=== PATIENT | male | born 1950 | race Caucasian/White ===

== ENCOUNTER → 2018-04-22 | Outpatient (CLI) | payer BC, MEDICARE ==
[~2018-04-22] MED LIST: CONTRAST GIVEN. MC
[2018-04-22] MEDS: LIDOCAINE WITH 8.4% SOD BICARB 3 ML DISP.SYRIN. INJ (13:48)
[2018-04-22] MEDS: IOHEXOL 300 MG/ML 10ML VIAL. IT (13:48)
== END | disposition home or self-care (01) ==
LOC: RAD 12:28
DX: M51.16 Intervertebral disc disorders with radiculopathy, lumbar region (principal); M47.812 Spondylosis without myelopathy or radiculopathy, cervical region; M48.02 Spinal stenosis, cervical region; K57.30 Diverticulosis of large intestine without perforation or abscess without bleeding; Z98.1 Arthrodesis status
CPT/HCPCS: 72126; 72132; 72270; Q9967

== ENCOUNTER 2019-03-31 09:34 | Inpatient (IN) | payer MEDICARE, BC ==
[~2019-03-31] VITALS: Ht 172.7 cm; Wt 112.5 kg
[~2019-03-31 09:34] MED LIST changes: -CONTRAST GIVEN. MC; +GABA300C18 PO; +IBUP-1027 PO; +MELO15TA23 PO; +OXYC1TAB19 PO
[2019-03-31 11:00] VITALS: BP 112/55
[2019-03-31] MEDS ORDERED: fentaNYL PF VIAL 100 MCG/2 ML VIAL ONE (12:02)
[2019-03-31] MEDS ORDERED: MIDAZOLAM HCL/PF 2 MG/2 ML VIAL. ONE (12:03)
[2019-03-31] MEDS ORDERED: HEPARIN for IV BOLUS 10,000 UNIT/10 ML VIAL. ONE (12:03)
[2019-03-31] MEDS ORDERED: VERAPAMIL 5 MG/2 ML VIAL. ONE (12:03)
[2019-03-31] MEDS ORDERED: NITROGLYCERIN 200 MCG/2 ML SYRINGE FOR CATH/VASC LAB. ONE ×2 (12:03→12:59)
[2019-03-31] MEDS ORDERED: IOHEXOL 300 MG/ML 100ML VIAL. ONE (12:22)
[2019-03-31] MEDS ORDERED: BIVALIRUDIN 250 MG VIAL. IV ONE ×2 (12:22→13:45)
[2019-03-31] MEDS ORDERED: EPINEPHrine SYRINGE 1 MG/10 ML SYRINGE ONE (12:26)
[2019-03-31] MEDS ORDERED: IODIXANOL 320 MG/ML 100 ML VIAL. ONE ×2 (12:42→13:11)
[2019-03-31] MEDS ORDERED: TIROFIBAN 5MG -0.9% NS 100 ML IV ONE (13:13)
[2019-03-31] MEDS ORDERED: ASPIRIN 325 MG TABLET ONE (13:32)
[2019-03-31] MEDS ORDERED: TICAGRELOR 90 MG TABLET. ONE (13:32)
[2019-03-31] MEDS ORDERED: LIDOCAINE 1% Multi-Dose 20 ML VIAL. INJ ONE (13:45)
[2019-03-31] MEDS ORDERED: HEPARIN for IV BOLUS 10,000 UNIT/10 ML VIAL. IART ONE (13:45)
[2019-03-31] MEDS ORDERED: fentaNYL PF VIAL 100 MCG/2 ML VIAL IV ONE (13:45)
[2019-03-31] MEDS ORDERED: TIROFIBAN 5MG -0.9% NS 100 ML IV PRN (13:45)
[2019-03-31] MEDS ORDERED: IOHEXOL 300 MG/ML 100ML VIAL. IART ONE (13:45)
[2019-03-31] MEDS ORDERED: MIDAZOLAM HCL/PF 2 MG/2 ML VIAL. IV ONE (13:45)
[2019-03-31] MEDS ORDERED: VERAPAMIL 5 MG/2 ML VIAL. IART ONE (13:45)
[2019-03-31] MEDS ORDERED: NITROGLYCERIN 200 MCG/2 ML SYRINGE FOR CATH/VASC LAB. IART ONE (13:45)
[2019-03-31] MEDS ORDERED: TICAGRELOR 90 MG TABLET. PO ONE (13:45)
[2019-03-31] MEDS ORDERED: ASPIRIN 325 MG TABLET PO ONE (13:45)
[2019-03-31 13:50] VITALS: BP 109/75
[2019-03-31 15:00] VITALS: BP 125/71
--- NOTE | 2019-03-31 15:57 | EKG ---
[facility] [address] [place] [address] Test Date: 2019-03-31 Test Time: 15:38:19 Pat Name: GURWINDER LUNSFORD Department: Room: 244 1 Gender: M Director Process Improvement: : 1950 Requested By: JAEL JACOBSEN Order Number: [id number] Reading MD: Kevin Eldridge Measurements Intervals [place] Rate: 66 P: 0 DC: 170 QRS: 28 QRSD: 112 T: 28 QT: 404 QTc: 425 Interpretive Statements SINUS RHYTHM INCOMPLETE RIGHT BUNDLE BRANCH BLOCK Electronically Signed On 04-28-2019 13:13:54 CDT by Kevin Eldridge
--- NOTE | 2019-03-31 16:24 | CARD ---
MR#: [id number] Date of Study: 03/31/2019 Ordering Physician: JAEL WEBB, Referring Physician: CIRA GUADALUPE, Tech: RT Ruth (R) DENISSE APPROVED REPORT Technologist: RT Ruth (R) DENISSE Nurse: Nikia Krishna R.N. Procedure(s) performed: MOD SEDATION: 90 min FLUORO TIME: 21.8 MIN DAP: 418 Gycm2 Contrast Total:323 ml LHC, Coronary angiography, PCI of the LAD, PCI of the LCx, PTCA of OM1 HISTORY The patient is a 68 year-old male with a history of : coronary artery disease, tobacco history() , dy slipidemia. INDICATION The indication(s) include : non-STEMI . PROCEDURE NARRATIVE INFORMED CONSENT: After explaining the risks and benefits of the procedure and alternatives, informed consent was obtained. The patient was brought electively to the cardiac catheterization lab. A timeout was performed confi rming the patient's name, date of , procedure, and site of procedure. All necessary personnel w ere wearing the appropriate protective equipment and radiation monitor devices. (See nursing notes for medications administered). ACCESS: The right wrist was sterilely prepped and draped in the usual fashion. The right wrist was infiltrat ed with 1 mL of 2% lidocaine for subcutaneous anesthesia. A 6 Polish Terumo glide sheath was inserte d into the right radial artery without difficulty. CORONARY ANGIOGRAPHY: Right and left coronary angiography was performed using a 6Fr TIG 4.0 catheter. Left ventricular en d diastolic pressure was obtained with a TIG catheter and pullback was performed after left ventricul ography. All catheter exchanges and advancements were performed over a guidewire. FINDINGS: HEMODYNAMICS: LVEDP 22 mm Hg No gradient on LV to aortic pullback. AO: 100/60 LEFT VENTRICULOGRAM: EF 55% Anterobasal: Normal. Anterolateral: Normal Apical: Normal Diaphragmatic: Normal Posterobasal: Normal CORONARY ANGIOGRAPHY: LM is a large caliber vessel with normal angiographic appearance. LAD is a large caliber vessel with a proximal 20% stenosis and a mid 80% stenosis. D1 and D2 are moderate caliber vessels with normal angiographic appearance. LCx is a moderate caliber non-dominant vessel with a proximal 100% acute occlusion. OM1 is a moderate caliber vessel with normal angiographic appearance. OM2 is a moderate caliber vessel with severe negative remodeling and less than 1.5 mm distal vessel w ith a 100% occlusion of previously placed stent. LPL1 is a moderate caliber vessel with a prior stent with a 100% stenosis. RCA is a large caliber dominant vessel with a mid 50% stenosis. RPDA and RPL are moderate caliber vessels with normal angiographic appearance. INTERVENTIONAL TECHNIQUE: PCI OF THE LCX, PTCA OF OM2 Based upon the presenting symptoms of intractable chest pain, elevated biomarkers and 100% LCx occlus ion, an intervention was performed. Bivalirudin was used for anticoagulation. Through a 6Fr EBU 3.5 g uide catheter, a 0.014'' Mytonomywater wire was advanced into the mid LCx and LPL1. Due to significant tor tuosity, prior stents, wiring the OM2 was extremely difficult and ultimately accomplished with a [employer] ce PT wire. Balloon angioplasty was performed of the mid LCx, distal LCx and proximal LP1 with a Trek 2.0, 2.5 mm balloons. Balloon angioplasty was also performed of the OM2 with a 2.5 mm Trek balloon. Despite repeated angioplasty, due to heavy thrombus burden, there was not satisfactory improvement in stenosis with residual 70% stenosis at the ostium of OM2. Due to the fact that the vessel distally w as quite small and due to prior stents at the location of the LCx and OM2 bifurcation, it was felt th at repeat bifurcation stenting would not be useful. Therefore, PCI was only performed of the mid and distal LCx. The distal LCx was stented with a Xience Jo Ann 2.5 x 15 mm BETINA. The proximal LCx was vasiliy nted with a Jo Ann 3.0/23 mm BETINA. The OM2 was rewired after main vessel stent deployment and stent st ruts were dilated again in a serial fashion but the ostium still had residual 70-80% stenosis. INTERVENTIONAL TECHNIQUE: PCI OF THE LAD Bivalirudin was continued for an to regulation. A pro-water wire was directed to the distal LAD. Ball oon angioplasty was performed with a 2.5 x 15 mm balloon and the lesion was stented with a 3.5 x 18 m m Xience drug-eluting stent. Final post-PCI angiography demonstrated no evidence of guider wire-relat ed complications. There was AYESHA-3 flow in the left circumflex and LPL as well as the LAD. AYESHA 1-2 f low in the second obtuse marginal. The patient received 180 mg of ticagrelor at case completion. CLOSURE: At case completion the right radial sheath was removed and a Terumo radial band was applied with 13 m l of air. COMPLICATIONS: The patient tolerated the procedure well and there were no immediate complications. COMMENTS circ ayesha pre 0 post 2 om ayesha pre 0 post 1 lad ayesha pre 3 post 3 Conclusion 1. Elevated left sided filling pressures consistent with acute on chronic diastoilc heart failure. 2. Three vessel coronary disease with culprit lesion involving the LCx bifurcation. 3. Successful PCI of the proximal LCx with a 3.0/23 mm Xience BETINA, 2.5/15 Xience BETINA in the distal LC x. 4. Successful PCI of the mid LAD with implantation of a 3.5/18 mm BETINA Recommendations ASA 81mg daily Ticagrelor 90mg bid High dose statin therapy Cardiac rehab referral Smoking cessation. Signed by : Jael Webb, Electronically Approved : 03/31/2019 16:24:20
--- NOTE | 2019-03-31 17:35 | PDOC2 ---
CARDIAC CONSULT DATE OF CONSULT Date of Consult DATE: 03/31/19 TIME: 17:33 CURRENT MEDICATIONS CURRENT MEDICATIONS Current Medications Medications (Trade) Dose Ordered Sig/Amanda Route PRN Reason Start Time Stop Time Status Last Admin Dose Admin Nitroglycerin (Nitroglycerin) 600 mcg 1X ONCE IART 03/31/19 13:45 03/31/19 13:46 DC 03/31/19 13:44 Verapamil HCl (Verapamil) 2.5 mg 1X ONCE IART 03/31/19 13:45 03/31/19 13:46 DC 03/31/19 13:45 Heparin Sodium (Porcine) (Heparin Sodium) 2,500 unit 1X ONCE IART 03/31/19 13:45 03/31/19 13:46 DC 03/31/19 13:45 Heparin Sodium/ Sodium Chloride (HEPARIN for ARTERIAL LINE FLUSH) 1,000 unit 1X ONCE IART 03/31/19 13:45 03/31/19 13:46 DC 03/31/19 13:44 Midazolam HCl (Versed) 2 mg 1X ONCE IV 03/31/19 13:45 03/31/19 13:46 DC 03/31/19 13:45 Fentanyl Citrate (Fentanyl 2ml Vial) 100 mcg 1X ONCE IV 03/31/19 13:45 03/31/19 13:46 DC 03/31/19 13:45 Iohexol (Omnipaque 300 Mg/ml) 323 ml 1X ONCE IART 03/31/19 13:45 03/31/19 13:46 DC 03/31/19 13:45 Bivalirudin (Angiomax) 250 mg 1X ONCE IV 03/31/19 13:45 03/31/19 13:46 DC 03/31/19 13:45 Ticagrelor (Brilinta) 180 mg 1X ONCE PO 03/31/19 13:45 03/31/19 13:46 DC 03/31/19 13:45 Aspirin (Jorge Luis Aspirin) 325 mg 1X ONCE PO 03/31/19 13:45 03/31/19 13:46 DC 03/31/19 13:45 Lidocaine HCl (Lidocaine 1% 20ml Vial) 20 ml 1X ONCE INJ 03/31/19 13:45 03/31/19 13:46 DC 03/31/19 13:45 Tirofiban/Sodium Chloride 100 ml @ 0 mls/hr CONT PRN IV PER PROTOCOL 03/31/19 13:45 5/9/19 13:48 DC 03/31/19 13:47 ALLERGIES ALLERGIES: Coded Allergies: adhesive (Verified Allergy, Intermediate, Rash, 05/23/15) VITALS VITALS Vital Signs Date Time Temp Pulse Resp B/P (MAP) Pulse Ox O2 Delivery O2 Flow Rate FiO2 03/31/19 15:00 98.0 63 18 125/71 (89) 91 Nasal Cannula 2.0 98.0 ASSESSMENT/PLAN ASSESSMENT/PLAN CONSULT Date of Admission DATE: 03/31/19 TIME: 08:59 Reason for Consult: chest pain Problem List Problems Medical Problems: (1) Chest pain Status: Acute History of Present Illness Patient is a 8 year old male who presented with chest pain starting at [place]. He took NTG at home without improvement, however his NTG was apparently . He was given NTG again in the ED as well as morphine at which point his blood pressure apparently decreased as well as Spo2. He reports no improvement until in ICU when he fell asleep. He is currently reporting pain at about 5/10 which he reports is better than previously. He reports radiation to his jaw. Initially he had associated diaphoresis and dyspnea which he currently denies. He reports pain consistent with his prior angina. He is wheelchair bound due to neuropathy so is unable to relate any change in functional capacity. He denies any baseline dyspnea, congestive symptoms, palpitations or lightheadedness. He does report chronic edema. Past Medical History Medical/surgical history- PAD PROCEDURE: 2012 Right leg runoff from the contralateral approach. Rotational atherectomy of a calcified left common iliac plaque with a lesion of approximately 75 percent. Placement of eV3 8 x 37 stent in the left common iliac artery from ipsilateral approach, which was post dilated with an 8 x 20 balloon. Left leg runoff revealed a highly calcified left common iliac lesion of about 75 percent. The lesion also appears to be eccentric. Successful rotational atherectomy of the left iliac lesion using a 2.0 CSI bur. Successful placement of an 8 x 37 mm stent in the left common iliac artery. Post dilatation of the stent using an 8 x 20 balloon. The stent used was an eV3. Final angiographic results of residual stenosis of less than zero percent with a good 3 vessel runoff to the foot. CAD July 09, 2007: Left heart cardiac catheterization with angioplasty and stenting of the subtotally occluded obtuse marginal branch and distal circumflex artery. This was done at [facility]. Cardiac catheterization revealed a patent left main. Circumflex artery proximally was patent, then it had a tubular narrowing distally about 80 percent. The obtuse marginal branch first one was patent. The second one had a 99 percent diffuse disease proximally. The left anterior descending artery had a 20 percent proximal lesion and 20 percent mid lesion. The right coronary artery was a tanvi nant vessel with 20 percent lesion. A 2.5 x 28 mm drug-eluting Cypher stent was placed in the proximal obtuse marginal branch and a 3 x 18 drug-eluting stent was placed in the distal left circumflex artery. This was also a Cypher stent. Cardiac cath 01/05/13 Left main. Left main coronary artery is noted to be patent. Distally it divides into the left circumflex artery and a left anterior descending artery. The left circumflex artery gives off a very high obtuse marginal branch. Then, it is noted to have 2 stents in it. One is in the distal circumflex artery, it is widely patent with a step-off and a step-down noted. The distal circumflex artery is noted to be patent beyond the stent. A large obtuse marginal branch has a previously placed stent which is also noted to be widely patent with a step-up and a step-down. No significant disease is noted in the distal part of the obtuse marginal branch. Left anterior descending artery. The left anterior descending artery shows heavy calcification proximally. In the mid area, there is a tubular narrowing of about 30 percent to 40 percent. Then right after the origin of the diagonal branch there is a focal area in the mid part of the left anterior descending artery which appears to be about 60 percent. A fractional flow reserve across this area was noted to be negative. Right coronary artery. The right coronary artery is the dominant vessel. The right coronary artery arises normally from the right coronary sinus and the right coronary artery proximally it is patent. In its mid area, there is an abrupt change in the lumen diameter with distal area showing about 40 percent lesion. The posterolateral and posterior descending arterial branches are noted to be patent. Left ventriculogram. The left ventriculogram reveals normal wall motion and normal left ventricular function, ejection fraction of 60 percent. No evidence of any significant mitral regurgitation is noted. Fractional flow reserve measured across the mid left anterior descending artery changed from 0.92 to 0.82 with maximum hyperemia. echo 11/04/12 Technically difficult study with poor endocardial definition, cannot assess for regional wall motion abnormalities. Left ventricular systolic function is within normal limits. LVEF 60% No significant valvular abnormalities. CHB s/p PPM carotid stenosis, hypotension, pneumonia, GERD, BPH, urinary retention, UTIs, neurogenic bladder (self cath). Cervical spine stenosis, s/p surgery, wheelchair bound due to neuropathy, arthritis, chronic pain, spinal stimulator implanted, anxiety, depression Family History non contributory Social History current smoker Current Medications Current Medications Aspirin (Children'S Aspirin) 324 mg 1X ONCE PO Last administered on 03/31/19at 00:46; Start 03/31/19 at 00:45; Stop 03/31/19 at 00:55; Status DC Nitroglycerin (Nitrostat) 0.4 mg PRN Q5MIN PRN SL CP RATING > 1/10 Last administered on 03/31/19at 05:27; Start 03/31/19 at 00:45; Stop 04/01/19 at 00:44 Morphine Sulfate (Morphine 4mg Syringe) 4 mg PRN Q15MIN PRN IV/SQ PAIN GREATER THAN 3/10 Last administered on 03/31/19at 00:54; Start 03/31/19 at 00:45; Stop 04/01/19 at 00:44 Ondansetron HCl (Zofran) 4 mg 1X ONCE IV Last administered on 03/31/19at 00:47; Start 03/31/19 at 00:45; Stop 03/31/19 at 00:55; Status DC Ondansetron HCl (Zofran) 4 mg STK-MED ONCE .ROUTE ; Start 03/31/19 at 00:44; Stop 03/31/19 at 00:45; Status DC Aspirin (Children'S Aspirin) 81 mg STK-MED ONCE .ROUTE ; Start 03/31/19 at 00:45; Stop 03/31/19 at 00:46; Status DC Nitroglycerin (Nitro-Bid Oint) 1 inch STK-MED ONCE .ROUTE ; Start 03/31/19 at 01:33; Stop 03/31/19 at 01:34; Status DC Nitroglycerin (Nitro-Bid Oint) 1 inch 1X ONCE TP Last administered on 03/31/19at 01:59; Start 03/31/19 at 02:00; Stop 03/31/19 at 02:01; Status DC Ketorolac Tromethamine (Toradol 15mg Vial) 15 mg 1X ONCE IV Last administered on 03/31/19at 01:59; Start 03/31/19 at 02:00; Stop 03/31/19 at 02:01; Status DC Ondansetron HCl (Zofran) 4 mg PRN Q4HRS PRN IV NAUSEA/VOMITING; Start 03/31/19 at 02:00; Stop 04/01/19 at 01:59 Fentanyl Citrate (Fentanyl 2ml Vial) 50 mcg PRN Q1HR PRN IV PAIN Last administered on 03/31/19at 04:42; Start 03/31/19 at 02:00; Stop 04/01/19 at 01:59 Sodium Chloride 1,000 ml @ 125 mls/hr Q8H IV Last administered on 03/31/19at 03:30; Start 03/31/19 at 01:58; Stop 04/01/19 at 01:57 Acetaminophen (Tylenol) 650 mg PRN Q4HRS PRN PO FEVER; Start 03/31/19 at 02:00; Stop 04/01/19 at 01:59 Nitroglycerin (Nitrostat) 0.4 mg PRN Q5MIN PRN SL CHEST PAIN; Start 03/31/19 at 02:00; Stop 04/01/19 at 01:59 Allergies: Coded Allergies: No Known Drug Allergies (Unverified , 02/02/15) Review of System as per HPI General: Alert, Oriented X3, Cooperative, No acute distress HEENT: Atraumatic, EOMI, Mucous membr. moist/pink Lungs: Other (coarse with decreased bases) Heart: Normal S1, Normal S2, Other (heart sounds distant, no obvious murmurs, no gallops, clicks or rubs. ) Abdomen: Normal bowel sounds, Soft Extremities: No cyanosis, Other (+2 edema) Neuro: Normal speech, Strength at 03/27 X4 ext Psych/Mental Status: Mood NL VITALS Vital Signs Date Time Temp Pulse Resp B/P (MAP) Pulse Ox O2 Delivery O2 Flow Rate FiO2 03/31/19 07:42 Nasal Cannula 2.0 03/31/19 05:52 76 19 100/60 (73) 96 03/31/19 03:18 97.3 Labs Laboratory Tests Test 03/31/19 00:40 03/31/19 05:45 White Blood Count 11.8 x10^3/uL (4.0-11.0) Red Blood Count 4.14 x10^6/uL (4.30-5.70) Hemoglobin 14.1 g/dL (13.0-17.5) Hematocrit 41.0 % (39.0-53.0) Mean Corpuscular Volume 99 fL (79-100) Mean Corpuscular Hemoglobin 34 pg (25-35) Mean Corpuscular Hemoglobin Concent 34 g/dL (31-37) Red Cell Distribution Width 16.1 % (11.5-14.5) Platelet Count 318 x10^3/uL (140-400) Neutrophils (%) (Auto) 70 % (31-73) Lymphocytes (%) (Auto) 21 % (24-48) Monocytes (%) (Auto) 8 % (0-9) Eosinophils (%) (Auto) 1 % (0-3) Basophils (%) (Auto) 1 % (0-3) Neutrophils # (Auto) 8.3 x10^3uL (1.8-7.7) Lymphocytes # (Auto) 2.5 x10^3/uL (1.0-4.8) Monocytes # (Auto) 0.9 x10^3/uL (0.0-1.1) Eosinophils # (Auto) 0.1 x10^3/uL (0.0-0.7) Basophils # (Auto) 0.1 x10^3/uL (0.0-0.2) Prothrombin Time 10.6 SEC (9.4-11.4) Prothromb Time International Ratio 1.1 (0.9-1.1) Sodium Level 141 mmol/L (136-145) Potassium Level 3.6 mmol/L (3.5-5.1) Chloride Level 103 mmol/L (98-107) Carbon Dioxide Level 24 mmol/L (21-32) Anion Gap 14 (6-14) Blood Urea Nitrogen 16 mg/dL (8-26) Creatinine 1.1 mg/dL (0.7-1.3) Estimated GFR (Cockcroft-Gault) 67.0 BUN/Creatinine Ratio 15 (6-20) Glucose Level 120 mg/dL (70-99) Calcium Level 8.5 mg/dL (8.5-10.1) Magnesium Level 1.9 mg/dL (1.8-2.4) Total Bilirubin 0.3 mg/dL (0.2-1.0) Aspartate Amino Transf (AST/SGOT) 8 U/L (15-37) Alanine Aminotransferase (ALT/SGPT) 10 U/L (16-63) Alkaline Phosphatase 88 U/L (46-116) Troponin I Quantitative < 0.017 ng/mL (0-0.055) 0.443 ng/mL (0-0.055) JB-Voc-Y-Type Natriuretic Peptide 437 pg/mL (0-124) Total Protein 6.2 g/dL (6.4-8.2) Albumin 3.1 g/dL (3.4-5.0) Albumin/Globulin Ratio 1.0 (1.0-1.7) Lipase 137 U/L (73-393) Images CXR - IMPRESSION: 1. Chronic elevation of the right hemidiaphragm with mild right basilar atelectasis. 2. Mild cardiomegaly. EKG - sinus with PACs, RBBB, non specific st/t abn Assessment/Plan 1. NSTEMI with continued anginal symptoms - lovenox, IVF, transfer for cardiac cath. Currently borderline hypotension. Add NTG and beta luz elena when pressure improves. 2. CAD with prior stenting as described above 3. PAD as described above 4. Hypotension - IVF, monitor 5. Hyperlipidemia - check lipids, add statin 6. CHB s/p PPM - check device. 7. spinal stenosis with failed surgery, spinal stim and chronic neuropathy. wheel chair bound due to pain. 8. tobaccoism - cessation encouraged. Transfer to [facility] for cardiac cath. will plan for echo there and pacemaker interrogation. NEENA SIDDIQUI APRN March 31, 2019 09:42 Signed By: NEENA SIDDIQUI APRN <<Signature on File>> Signed Date/Time: 03/31/19 0953 cc: JAEL JACOBSEN MD; CIRA GUADALUPE MD; NEENA SIDDIQUI APRN; SAGE PEÑA MD~ Patient seen and examined at [facility]. 68 y.o severe chest pain and prior CAD. 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 See cath report for full details. Severe three vessel CAD. s/p PCI to the LCx and LAD. Continue aggressive medical therapy. JAEL JACOBSEN MD March 31, 2019 17:35
[2019-03-31] MEDS: MORPHINE SULFATE 4 MG/ML VIAL. IV PRN ×2 (19:21→23:24)
[2019-03-31] MEDS: oxyCODONE/APAP 7.5/325 1 TAB TABLET PO PRN (19:22)
[2019-03-31 19:34] VITALS: BP 129/60
[2019-03-31] MEDS ORDERED: ATORVASTATIN CALCIUM 40 MG TABLET. PO SCH (21:00)
[2019-03-31] MEDS: GABAPENTIN 300 MG CAPSULE. PO SCH (21:11)
[2019-03-31] MEDS: TICAGRELOR 90 MG TABLET. PO SCH (21:11)
[2019-03-31 23:34] VITALS: BP 134/62
[2019-04-01 03:12] VITALS: BP 118/59
[2019-04-01 04:59] LABS: CHOLESTEROL/HDL RATIO 5.9
[2019-04-01] MEDS: oxyCODONE/APAP 7.5/325 1 TAB TABLET PO PRN ×2 (06:13→13:39)
[2019-04-01 07:00] VITALS: BP 125/62
[2019-04-01] MEDS ORDERED: ASPIRIN ENTERIC COATED 81 MG TABLET.DR. PO SCH (08:00)
[2019-04-01] MEDS ORDERED: IBUPROFEN 400 MG TABLET. PO SCH (08:00)
[2019-04-01] MEDS: GABAPENTIN 300 MG CAPSULE. PO SCH ×4 (08:26→14:10)
[2019-04-01] MEDS: TICAGRELOR 90 MG TABLET. PO SCH (08:27)
--- NOTE | 2019-04-01 08:53 | HP ---
ADMIT DATE: 03/31/2019 HISTORY OF PRESENT ILLNESS: The patient is a 68-year-old male patient who presented to the Emergency Room of [facility] with chest pain that started at midnight, he took nitroglycerin at home without improvement. However, his nitroglycerin was apparently . He was given nitroglycerin again in the Emergency Room with IV morphine. At this point, his blood pressure apparently decreased as well as his oxygen saturation, he reports no improvement until in ICU when he fell asleep. By the time he was seen in the ICU, his pain was rated 5/10. He reports radiation to his jaw. Initially has associated diaphoresis and dyspnea, which have subsided and he reported that his pain is consistent with his prior angina. He is wheelchair-bound due to neuropathy. He is unable to relate any change in functional capacity and he denied any shortness of breath, palpitation, lightheadedness. His first set of cardiac enzymes showed a troponin to be less than 0.017, repeat one done early in the morning was 0.443 and the third one was 2.648 and therefore, the patient was transferred to [facility] for cardiac catheterization. PAST MEDICAL HISTORY: Significant for complete heart block, status post permanent pacemaker placement. He has carotid stenosis, hypertension, pneumonia, gastroesophageal reflux disease, benign prostatic hypertrophy, urinary retention, UTIs, neurogenic bladder and he self-catheterizes, also known to have cervical spine stenosis status post surgery. He was wheelchair bound due to neuropathy, generalized arthritis, chronic pain syndrome, anxiety and depression. PAST SURGICAL HISTORY: Significant for spinal stimulator implanted, underwent left heart catheterization with angioplasty and stenting of the subtotally occluded obtuse marginal branch and distal circumflex artery done in [place]. FAMILY HISTORY: Noncontributory. SOCIAL HISTORY: He is and lives with his . He continues to smoke cigarettes. He denied any alcohol. 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 REVIEW OF SYSTEMS: As per history of present illness. PHYSICAL EXAMINATION: GENERAL: On examining him, he looked somewhat pale, no jaundice, cyanosis, or thyromegaly. No jugular venous distension. No has bilateral lower limb edema. VITAL SIGNS: His heart rate was 76, blood pressure 100/60, temperature was 97, respiratory rate was 19 and oxygen saturation was 96% on 2 liters of oxygen. HEAD, EYES, EARS, NOSE AND THROAT: Showed normocephalic, atraumatic. NECK: Supple. HEART: Showed normal first and second heart sounds with no gallop, rub or murmur. CHEST: Clear to auscultation. No crepitation or rhonchi. ABDOMEN: Distended, soft, nontender. No guarding or rigidity. No organomegaly. All hernial orifices intact. Bowel sounds normal. NEUROLOGIC: He was awake, alert, responding appropriately. All cranial nerves intact. EXTREMITIES: He moves upper extremities without difficulty; however, he has paraplegia. He is mostly wheelchair bound. LABORATORY DATA: While at [facility] Emergency Room, has had lab work which showed a white cell count of 11,800; hemoglobin 14; hematocrit 41; MCV 99; and platelet count 318,000. His chemistry showed his serum sodium to be 141, potassium 3.6, chloride 103, bicarbonate 24, anion gap of 14, BUN 16, creatinine 1.1, estimated GFR was 67 mL per minute, his glucose 120, calcium was 8.5, magnesium was 1.9. Total bilirubin, AST, ALT, alkaline phosphatase were normal. His first set of troponin was less than 0.017. However, has 2 more sets of cardiac enzymes, the second one was 0.443, third was 2.648. His beta-natriuretic peptide was 137. Total protein 6.2, albumin 3.1 and lipase 137. His prothrombin time was 10.6, INR 1.1. His nasal screen for MRSA PCR was negative. His EKG showed right bundle-branch block with nonspecific ST-T changes. ASSESSMENT AND PLAN: The patient was transferred to [facility] with non-ST segment elevation myocardial infarction, continued angina symptoms, he was started on Lovenox, IV fluid and was transferred for cardiac catheterization. Coronary artery disease with prior stenting, peripheral arterial disease, hypertension, hyperlipidemia, complete heart block status post permanent pacemaker placement, spinal stenosis with failed surgery, spinal stimulator and chronic neuropathy, wheelchair-bound due to pain and continued tobaccoism, for which cessation was encouraged. CIRA GUADALUPE MD DR: CLAUDIA/ceci JOB#: [id number] / [id number]
--- NOTE | 2019-04-01 10:33 | CARD ---
MR#: [id number] Date of Study: 04/01/2019 Ordering Physician: GENEVIEVE GUERRA, Referring Physician: CIRA GUADALUPE, Tech: Carley Velasquezgertrudis APPROVED REPORT EXAM: Two-dimensional and M-mode echocardiogram with Doppler and color Doppler. Other Information Quality : FairHR: 76bpm Technically limited study due to body habitus and heavy breathing INDICATION Non STEMI Surgery/Intervention Pacemaker: RISK FACTORS Smoking 2D DIMENSIONS RVDd3.0 (2.9-3.5cm)Left Atrium(2D)3.5 (1.6-4.0cm) IVSd1.1 (0.7-1.1cm)Aortic Root(2D)3.5 (2.0-3.7cm) LVDd5.4 (3.9-5.9cm)LVOT Diameter2.0 (1.8-2.4cm) PWd1.1 (0.7-1.1cm)LVDs4.5 (2.5-4.0cm) FS (%) 17.5 %SV51.5 ml LVEF(%)36.1 (>50%) Aortic Valve AoV Peak Amos.149.1cm/sAoV VTI26.1cm AO Peak GR.8.9mmHgLVOT Peak Amos.124.2cm/s LVOT VTI 22.28cmAO Mean GR.4mmHg RAN (VMAX)1.19ct4ESB (VTI)2.68cm2 Mitral Valve MV E Egwetktq908.6cm/sMV E Peak Gr.103mmHg MV DECEL [id number] A Oesigejm64.8cm/s MV KWJ98bhK/A Ratio1.6 MVA (PHT)4.19cm2 TDI E/Lateral E'20.4E/Medial E'18.8 Pulmonary Valve PV Peak Edkhagjp883.2cm/sPV Peak Grad.5mmHg Tricuspid Valve TR P. Oouirmkg270uo/sRAP DCECWPDL6gqPr TR Peak Gr.37cnGkJXII68ycDq Pulmonary Vein S1 Ffxribfv61.4cm/sD2 Momwaikp18.8cm/s PVa [id number] LEFT VENTRICLE The left ventricle is normal size. There is borderline concentric left ventricular hypertrophy. The E jection Fraction is 50-55%. There is grossly normal LV segmental wall motion. Transmitral Doppler caroline w pattern is Grade II-pseudonormal filling dynamics. RIGHT VENTRICLE The right ventricle is normal size. There is normal right ventricular wall thickness. RV Systolic fun ction is mildly reduced. ATRIA The left atrium size is normal. The right atrium size is normal. The interatrial septum is intact wit h no evidence for an atrial septal defect or patent foramen ovale as noted on 2-D or Doppler imaging. AORTIC VALVE The aortic valve is normal in structure and function. Doppler and Color Flow revealed no significant aortic regurgitation. There is no significant aortic valvular stenosis. MITRAL VALVE The mitral valve is normal in structure and function. There is no evidence of mitral valve prolapse. There is no mitral valve stenosis. Doppler and Color-flow revealed mild mitral regurgitation. TRICUSPID VALVE The tricuspid valve is normal in structure and function. Doppler and Color Flow revealed mild to mode rate tricuspid regurgitation with an estimated PAP of 50 mmHg. There is moderate pulmonary hypertensi on. There is no tricuspid valve stenosis. PULMONIC VALVE The pulmonic valve is not well visualized. Doppler and Color Flow revealed no pulmonic valvular regur gitation. There is no pulmonic valvular stenosis. GREAT VESSELS The aortic root is normal in size. The IVC is normal in size and collapses >50% with inspiration. PERICARDIAL EFFUSION There is a trace circumferential pericardial effusion. Critical Notification Critical Value: No <Conclusion> The Ejection Fraction is 50-55%. There is grossly normal LV segmental wall motion. Doppler and Color Flow revealed mild to moderate tricuspid regurgitation with an estimated PAP of 50 mmHg. There is moderate pulmonary hypertension. Signed by : Tevin Webb, Electronically Approved : 04/01/2019 10:32:56
--- NOTE | 2019-04-01 10:45 | NUR ---
SS following for discharge planning. SS reviewed pt chart. Pt is from home with spouse and is currently requiring oxygen. PT/OT ordered. SS will await PT/OT evaluations and recommendations and will proceed accordingly.
[2019-04-01 11:00] VITALS: BP 109/54
[2019-04-01] MEDS ORDERED: NYSTATIN TOPICAL POWDER 15GM BOTTLE. TP SCH (11:30)
--- NOTE | 2019-04-01 12:09 | PDOC ---
CARDIO Progress Notes Date and Time Date of Service 04/01/2019 Time of Evaluation 1140 Subjective Subjective: No Chest Pain, No shortness of breath, No Palpitations Vitals Vitals Vital Signs Date Time Temp Pulse Resp B/P (MAP) Pulse Ox O2 Delivery O2 Flow Rate FiO2 04/01/19 11:00 98.1 70 20 109/54 (72) 97 Nasal Cannula 2.0 98.1 Weight Weight [ ] Input and Output Intake and Output Intake and Output 04/01/19 07:00 Intake Total 300 ml Output Total 20 ml Balance 280 ml Intake Oral 300 ml Output Urine Total 20 ml # Voids 3 Laboratory Labs Laboratory Tests Test 04/01/19 04:30 Triglycerides Level 174 mg/dL (0-150) Cholesterol Level 113 mg/dL (0-200) LDL Cholesterol, Calculated 59 mg/dL (0-100) VLDL Cholesterol, Calculated 35 mg/dL (0-40) Non-HDL Cholesterol Calculated 94 mg/dL (0-129) HDL Cholesterol 19 mg/dL (40-60) Cholesterol/HDL Ratio 5.9 Physical Exam HEENT: Neck Supple W Full Motion Chest: Symmetric LUNGS: Clear to Auscultation Heart: S1S2, RRR (SR) Abdomen: Soft N/T Extremities: No Calf Tenderness, Other (trace LE edema) Neurology: alert, oriented, follow commands Other Exams right wrist arteriotomy site intact, no erythema or swelling, neurovascular status to right hand intact. Assessment Assessment 1. NSTEMI: EF and WM nml. S/P PCI, 3VD- BETINA to proximal LCx and mid LAD 2. CAD: prior stent 3. DLP 4. Hypotension: better 5. Hx of CHB with dual chamber PPM: [employer] 6. Hx of spinal stenosis with failed surgery hence with thoracic spinal stimulator 7. Tobaccoism with likely COPD 8. Moderate pulmonary HTN with mild to mod TR 9. Acute on chronic diastolic heart failure: compensated Recommendations 1. Unable to provide any NTG, BB nor ACEi/ARB at this time due to BP at low end. HBPM will reeval as an outpt 2. ASA/Brilinta. Statin 3. Will interrogate device prior to DC. 4. Smoking cessation and cardiac rehab. Limited mobility due to significant back problems. Consider Home health. 5. Typically see Dr. Moser in but will start seeing Dr. Webb, follow up at [facility] office in 4 weeks. GENEVIEVE GUERRA APRN April 01, 2019 12:09
--- NOTE | 2019-04-01 14:01 | NUR ---
Wound care Wound care consult for reddened groin. Pt has red yeasty rash in left groin with area of intertrigo. Cleansed area, applied nystatin powder. No other wounds noted on full skin inspection. Pt educated on POC. WC will continue to follow for possible changes.
[2019-04-01] MEDS ORDERED: TICA90TA PO (14:29)
--- NOTE | 2019-04-01 14:31 | SNU/HH DC ---
DISCHARGE WITH HOME HEALTH DISCHARGE INFORMATION: Discharge Date: April 01, 2019 Final Diagnosis: NSTEMI Condition on Discharge: Stable CODE STATUS: Code Status: Full HOME HEALTH: Face to Face: I certify this patient is under my care and that I, or a nurse practitioner or physician's custody assistant working with me, had a face to face encounter that meets the physician face to face encounter requirements with this patient on 04/01/19 Medical Complications: MA RN For Eval/Treatment: Yes Physical Therapy For: Evalulation/Treatment Occupational Therapy For: Evaluation/Treatment Pt Meets Homebound Status: Limited distance walking POST DISCHARGE ORDERS: Activity Instructions for Disc: Resume previous activity Weight Bearing Status after Di: As tolerated DIET AFTER DISCHARGE: Regular CERTIFICATION STATEMENT: Certification Statement: Certification Statement: Based on the above finding, I certify that this patient is confined to the home and needs intermittent fpc care, physical therapy and/or speech therapy, or continues to need occupational therapy.~ This patient is under my care, and I have initiated the establishment of the plan of care.~ This patient will be followed by myself or a community physician who will periodically review the plan of care. Home Meds Active Scripts Ticagrelor (BRILINTA) 90 Mg Tablet, 90 MG PO BID for CAD for 30 Days, #60 TAB Prov:CIRA GUADALUPE MD 04/01/19 Reported Medications Oxycodone/Apap 7.5-325 (PERCOCET 7.5-325 MG TABLET ) 1 Each Tablet, 1 TAB PO PRN PRN for PAIN, TAB 05/23/15 Meloxicam (MELOXICAM) 15 Mg Tablet, 1 TAB PO DAILY, #30 TAB 2 Refills 05/23/15 Gabapentin (GABAPENTIN ) 300 Mg Capsule, 1 CAP PO TID, #90 CAP 5 Refills 05/23/15 Ibuprofen (IBUPROFEN) 400 Mg Tablet, 2 TAB PO PRN Q6HRS, #20 TAB 05/23/15 CIRA GUADALUPE MD April 01, 2019 14:31
[2019-04-01 14:41] VITALS: BP 101/41
--- NOTE | 2019-04-01 14:53 | NUR ---
SS following up with discharge planning. Discharge orders received for home healthcare. SS met with pt and spouse in room and discussed options. Pt and pt's spouse agreeable to [facility]. SS phoned and faxed referral to [facility], ; fax [phone]. [facility] called and accepted pt.
[2019-04-01] MEDS ORDERED: ATOR40TA59 PO (15:15)
[2019-04-01] MEDS ORDERED: ASPI-612 PO (15:16)
--- NOTE | 2019-04-01 16:33 | NUR ---
Discharge Note: [facility] Discharge instructions and discharge home medications reviewed with Patient and a copy given. All questions have been answered and understanding verbalized. The following instructions and handouts were given: cardiac cath,cardiac diet, and smoking cessation Discontinued iv lines and catheter intact. Patient discharged to home with home health with spouse via private vachile.
== END 2019-04-01 16:36 | disposition home health service (06) | DRG 246 ==
LOC: 2 SOUTH 10:37
PROVIDERS: ADMIT Internal Medicine; ATTEND Internal Medicine
PROC: B2111ZZ Fluoroscopy of Multiple Coronary Arteries using Low Osmolar Contrast (ICD-10-PCS; principal; 2019-03-31)
PROC: 027136Z Dilation of Coronary Artery, Two Arteries with Three Drug-eluting Intraluminal Devices, Percutaneous Approach (ICD-10-PCS; 2019-03-31)
PROC: B2151ZZ Fluoroscopy of Left Heart using Low Osmolar Contrast (ICD-10-PCS; 2019-03-31)
PROC: 4A023N7 Measurement of Cardiac Sampling and Pressure, Left Heart, Percutaneous Approach (ICD-10-PCS; 2019-03-31)
DX: T82.855A Stenosis of coronary artery stent, initial encounter (principal); I21.4 Non-ST elevation (NSTEMI) myocardial infarction; I50.33 Acute on chronic diastolic (congestive) heart failure; J98.11 Atelectasis; E78.5 Hyperlipidemia, unspecified; F17.210 Nicotine dependence, cigarettes, uncomplicated; G62.9 Polyneuropathy, unspecified; G89.4 Chronic pain syndrome; I11.0 Hypertensive heart disease with heart failure; I25.119 Atherosclerotic heart disease of native coronary artery with unspecified angina pectoris; I27.20 Pulmonary hypertension, unspecified; I73.9 Peripheral vascular disease, unspecified; J44.9 Chronic obstructive pulmonary disease, unspecified; K21.9 Gastro-esophageal reflux disease without esophagitis; M48.00 Spinal stenosis, site unspecified; N31.9 Neuromuscular dysfunction of bladder, unspecified; N40.1 Benign prostatic hyperplasia with lower urinary tract symptoms; F32.9 Major depressive disorder, single episode, unspecified; F41.9 Anxiety disorder, unspecified; I65.29 Occlusion and stenosis of unspecified carotid artery; M19.90 Unspecified osteoarthritis, unspecified site; I95.9 Hypotension, unspecified; Z95.0 Presence of cardiac pacemaker; Z95.5 Presence of coronary angioplasty implant and graft; Z99.3 Dependence on wheelchair
CPT/HCPCS: 36415; 80061; 92921; 92928; 93005; 93306; 93458; 99152; 99153; 99406; C1713; C1725; C1769; C1887; C1892; J0583; J1644; J2250; J2270; J3010; J3490; Q9967; J3246

== ENCOUNTER 2019-04-10 11:59 | Inpatient (IN) | payer BC, MEDICARE ==
[~2019-04-10] VITALS: Ht 172.7 cm; Wt 117.3 kg
[~2019-04-10 11:59] MED LIST changes: +ASPI-612 PO; +ATOR40TA59 PO; +TICA90TA PO
[2019-04-10 14:00] VITALS: BP 93/53
[2019-04-10] MEDS ORDERED: GABA800T5 PO (14:11)
[2019-04-10] MEDS ORDERED: AMIT25TA PO (14:11)
[2019-04-10] MEDS ORDERED: SERT100T PO (14:11)
[2019-04-10] MEDS ORDERED: LIDO700A39 TP (14:11)
[2019-04-10] MEDS ORDERED: TIZA4TAB PO (14:11)
[2019-04-10] MEDS ORDERED: OXYC1TAB22 PO (14:11)
[2019-04-10] MEDS ORDERED: IV NORMAL SALINE 1000ML BAG 1,000 ML IV ONE (14:45)
[2019-04-10] MEDS ORDERED: oxyCODONE IR 5 MG TABLET PO PRN (14:45)
[2019-04-10 15:00] VITALS: BP 93/53
--- NOTE | 2019-04-10 15:09 | PDOC ---
Infectious Disease Note Vital Sign Vital Signs Vital Signs Date Time Temp Pulse Resp B/P (MAP) Pulse Ox O2 Delivery O2 Flow Rate FiO2 04/10/19 14:00 98.4 79 18 93/53 (66) 95 Room Air 98.4 Objective Assessment Sepsis with hypotension UTI POA ([facility]) 04/10 Leukocytosis Neurogenic bladder requiring self-catheterization, currently has a indwelling Nichole in place Partial paraplegia Elevated troponin CAD/NSTEMI s/p coronary stent placement, 03/31/19 Chronic diastolic HF h/o E. coli (R amp, Unasyn) & E. faecalis (amp/vanc S) UTIs Plan Plan of Care vanc and Zosyn (initiated at [facility]) Monitor VS/renal function closely f/u Blood and urine cultures from [facility] 04/10. Labs in am Supportive care [facility] records reviewed Thank you [id number] D/W at bedside D/W RN Patient seen, examined, I agree with above. Assessment and plan was formulated with [employer]. LUCY VERGARA APRN April 10, 2019 15:09 BITA RAZO MD April 10, 2019 16:02
[2019-04-10] MEDS: oxyCODONE/APAP 10/325 1 TAB TABLET PO PRN ×2 (16:57→23:01)
[2019-04-10] MEDS ORDERED: GABAPENTIN 400 MG CAPSULE. PO ONE (17:00)
[2019-04-10 20:00] VITALS: BP 100/52
[2019-04-10 21:00] VITALS: BP 108/46
[2019-04-10] MEDS: tiZANidine 4 MG TABLET. PO SCH (21:07)
[2019-04-10] MEDS: AMITRIPTYLINE HCL 25 MG TABLET. PO SCH (21:07)
[2019-04-10] MEDS: TICAGRELOR 90 MG TABLET. PO SCH (21:07)
[2019-04-10] MEDS: ATORVASTATIN CALCIUM 40 MG TABLET. PO SCH (21:07)
[2019-04-10] MEDS: GABAPENTIN 400 MG CAPSULE. PO SCH (21:07)
[2019-04-10 22:00] VITALS: BP 97/54
[2019-04-10 23:00] VITALS: BP 103/61
[2019-04-11] VITALS (36 sets, daily range): BP systolic 67–182; BP diastolic 43–128
--- NOTE | 2019-04-11 02:37 | CONS ---
DATE OF CONSULTATION: 04/10/2019 Kehinde Mancini, nurse practitioner, dictating for Dr. Laura Omalley, Infectious Disease. REFERRING PHYSICIAN: Dr. Richard. REASON FOR CONSULTATION: Urosepsis. HISTORY OF PRESENT ILLNESS: This patient is a 68-year-old male with a history of coronary artery disease and non-ST elevation PR, status post coronary stent placement on 03/31/2019. His normally checks his blood pressure twice a day. This morning, she checked it after he suddenly became ill-appearing, pale and sweaty. His heart rate was up, and his blood pressure was low, prompting ER visit. He received IV fluids. His troponin was 0.397. He had an elevated white blood cell count of 16,000. Segs 76%, bands 2%. Lactic acid 1.7. A urinalysis showed wbc's too numerous to count, large leukocyte esterase, positive nitrite, few squamous epithelial cells and many bacteria. Urine and blood cultures are pending. He was dosed with vancomycin and Zosyn before transferring to [facility] for further evaluation and management. The patient says he had been feeling well until this morning. He denies fevers, chills or body aches. He did have some shortness of air as he walked to the car, but has since resolved. He is satting 95% on room air. He denies cough or chest discomfort. He has a history of having a spinal fusion, complicated by partial paralysis and loss of bowel and bladder control. Since 2002, he has been self-catheterizing for urinary retention 4-9 times a day using new catheters each time. He has a history of urinary tract infections with growth of E. coli (resistant to ampicillin, intermediate susceptibility to Unasyn) and Enterococcus faecalis (ampicillin and vancomycin sensitive). He denies having been on any antibiotics within the last several weeks. He complains of a chronic neuropathic-type pain in lower extremities bilaterally. He is able to walk some, but uses a wheelchair most of the time for mobility. He denies nausea, vomiting or diarrhea. Denies headache, nasal/sinus congestion or sore throat. Denies dizziness or palpitations. PAST MEDICAL HISTORY: Coronary artery disease, recent non-ST elevation PR, history of UTI with a growth of E. coli (resistant to ampicillin, intermediate Unasyn) and Enterococcus faecalis (ampicillin and vancomycin sensitive). A partial paralysis and neurogenic bowel and bladder. Chronic diastolic heart failure. Peripheral neuropathy. Hypertension, colonic polyps, GERD, benign prostatic hyperplasia, arthritis, back pain, depression, anxiety. Chronic back pain. Carotid stenosis, wheelchair bound due to neuropathy. Hyperlipidemia. PAST SURGICAL HISTORY: Coronary stent placement on 03/31/2019. Pacemaker placement, cervical spinal fusion, complicated by partial paralysis. Implantable back stimulator. Polypectomy. SOCIAL HISTORY: The patient is and lives at home. 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 He is a smoker. FAMILY HISTORY: Positive for brain abscess. ALLERGIES: No known drug allergies. MEDICATIONS: Vancomycin and Zosyn. Other medications are available and have been reviewed on the MAR. REVIEW OF SYSTEMS: Per HPI, otherwise all other review of systems are negative. PHYSICAL EXAMINATION: VITAL SIGNS: Temperature is 98.4, blood pressure 93/53, heart rate 79, respiratory rate 18 and pulse oximetry is 95% on room air. BMI 36. HEENT: Pupils equally round, reactive. Normal conjunctivae. Oral cavity: Pharynx is pink and moist. NECK: Supple. LUNGS: Clear to auscultation. HEART: S1, S2. Pacemaker. ABDOMEN: Obese, soft, nontender with bowel sounds present. GENITOURINARY: Indwelling Nichole in place. EXTREMITIES: 1+ edema in lower extremities bilaterally. No cyanosis. SKIN: Warm without generalized rash. NEUROLOGIC: Alert and oriented x 3. Chronic lower extremity weakness. LABORATORY DATA: From 04/10 at [facility], WBC 16.0, hemoglobin 13.6, platelets 381,000, segs 76%, bands 2%. Sodium 143, potassium 4.2, creatinine 1.2, BUN 39, glucose 115. Lactic acid 1.7, total bilirubin 0.5, AST 10, ALT 15. Troponin 0.397. BNP 1700. Albumin 3.2. Urine toxicology positive for opiates. Urinalysis per HPI. Urine and blood cultures pending. Chest x-ray showed no acute cardiopulmonary infiltrates. IMPRESSION: 1. Sepsis with hypotension, present on admission on 04/10. 2. Urinary tract infection present on admission ([facility]). 3. Leukocytosis. 4. Neurogenic bladder requiring self-catheterization, currently has an indwelling Nichole in place. 5. Partial paraplegia. 6. Elevated troponin. 7. Coronary artery disease, status post coronary stent placed on 03/31/2019. 8. Chronic diastolic heart failure. PLAN: Continue the vancomycin and Zosyn for now. Further antibiotic modifications pending culture results and clinical response. Repeat labs in the morning. Continue to monitor vital signs and renal function closely. Records from [facility] were reviewed. Discussed with and nursing. Thank you Dr. Richard for asking us to participate in this patient's care. Should you have further questions or concerns, please call. LAURA OMALLEY MD DR: GRETCHEN/ceci JOB#: [id number] / [id number]
[2019-04-11] MEDS: tiZANidine 4 MG TABLET. PO SCH ×3 (05:30→22:06)
[2019-04-11] MEDS: oxyCODONE/APAP 10/325 1 TAB TABLET PO PRN ×2 (05:30→13:08)
[2019-04-11 05:32] LABS: BASO % 0 % (0-3); EOS # 0.1 x10^3/uL (0.0-0.7); EOS % 2 % (0-3); HEMATOCRIT 27.1 % (39.0-53.0); HEMOGLOBIN 9.1 g/dL (13.0-17.5); LYMPH # 0.3 x10^3/uL (1.0-4.8); LYMPH % 4 % (24-48); MEAN CORPUSCULAR HEMOGLOBIN 34 pg (25-35); MEAN CORPUSCULAR HGB CONC 34 g/dL (31-37); MEAN CORPUSCULAR VOLUME 100 fL (79-100); MONO # 0.4 x10^3/uL (0.0-1.1); MONO % 5 % (0-9); NEUT # 6.8 x10^3uL (1.8-7.7); NEUT % 89 % (31-73); PLATELET COUNT 179 x10^3/uL (140-400); RED BLOOD COUNT 2.71 x10^6/uL (4.30-5.70); RED CELL DISTRIBUTION WIDTH 16.2 % (11.5-14.5); WHITE BLOOD COUNT 7.6 x10^3/uL (4.0-11.0)
[2019-04-11 05:39] LABS: CALCIUM 7.9 mg/dL (8.5-10.1); CREATININE 1.1 mg/dL (0.7-1.3); POTASSIUM 4.1 mmol/L (3.5-5.1)
[2019-04-11] MEDS ORDERED: IV NORMAL SALINE 500ML BAG 500 ML IV ONE (07:30)
--- NOTE | 2019-04-11 07:46 | PDOC ---
Infectious Disease Note Subjective Subjective pt is feeling good ROS ROS no n/v/d/sob does have chronic gluteal pain Vital Sign Vital Signs Vital Signs Date Time Temp Pulse Resp B/P (MAP) Pulse Ox O2 Delivery O2 Flow Rate FiO2 04/11/19 06:38 16 97 Room Air 04/11/19 06:00 77 98/54 (69) 04/11/19 04:00 97.8 97.8 Physical Exam PHYSICAL EXAM HEENT: Pupils equally round, reactive. Normal conjunctivae. Oral cavity: Pharynx is pink and moist. NECK: Supple. LUNGS: Clear to auscultation. HEART: S1, S2. Pacemaker. ABDOMEN: Obese, soft, nontender with bowel sounds present. GENITOURINARY: Indwelling Nichole in place. EXTREMITIES: 1+ edema in lower extremities bilaterally. No cyanosis. SKIN: Warm without generalized rash. NEUROLOGIC: Alert and oriented x 3. Chronic lower extremity weakness. Labs Lab Laboratory Tests Test 04/11/19 04:20 White Blood Count 7.6 x10^3/uL (4.0-11.0) Red Blood Count 2.71 x10^6/uL (4.30-5.70) Hemoglobin 9.1 g/dL (13.0-17.5) Hematocrit 27.1 % (39.0-53.0) Mean Corpuscular Volume 100 fL (79-100) Mean Corpuscular Hemoglobin 34 pg (25-35) Mean Corpuscular Hemoglobin Concent 34 g/dL (31-37) Red Cell Distribution Width 16.2 % (11.5-14.5) Platelet Count 179 x10^3/uL (140-400) Neutrophils (%) (Auto) 89 % (31-73) Lymphocytes (%) (Auto) 4 % (24-48) Monocytes (%) (Auto) 5 % (0-9) Eosinophils (%) (Auto) 2 % (0-3) Basophils (%) (Auto) 0 % (0-3) Neutrophils # (Auto) 6.8 x10^3uL (1.8-7.7) Lymphocytes # (Auto) 0.3 x10^3/uL (1.0-4.8) Monocytes # (Auto) 0.4 x10^3/uL (0.0-1.1) Eosinophils # (Auto) 0.1 x10^3/uL (0.0-0.7) Basophils # (Auto) 0.0 x10^3/uL (0.0-0.2) Sodium Level 143 mmol/L (136-145) Potassium Level 4.1 mmol/L (3.5-5.1) Chloride Level 109 mmol/L (98-107) Carbon Dioxide Level 23 mmol/L (21-32) Anion Gap 11 (6-14) Blood Urea Nitrogen 42 mg/dL (8-26) Creatinine 1.1 mg/dL (0.7-1.3) Estimated GFR (Cockcroft-Gault) 67.0 Glucose Level 106 mg/dL (70-99) Calcium Level 7.9 mg/dL (8.5-10.1) Micro BC neg Urine, neg so far Objective Assessment 1. Sepsis with hypotension, present on admission on 04/10. 2. Urinary tract infection present on admission ([facility]). 3. Leukocytosis. 4. Neurogenic bladder requiring self-catheterization, currently has an indwelling Nichole in place. 5. Partial paraplegia. 6. Elevated troponin. 7. Coronary artery disease, status post coronary stent placed on 03/31/2019. 8. Chronic diastolic heart failure. Plan Plan of Care sera and Gay (initiated at [facility]) Monitor VS/renal function closely f/u Blood and urine cultures from [facility] 04/10. Labs in am Supportive care [place] records reviewed d/c sera Albarran/MARLI LAZO RN, MD April 11, 2019 07:46
[2019-04-11] MEDS ORDERED: NOREPINEPHRIN 8MG/250ML PREMIX 250 ML IV PRN (08:30)
[2019-04-11] MEDS: ASPIRIN ENTERIC COATED 81 MG TABLET.DR. PO SCH (08:51)
[2019-04-11] MEDS: TICAGRELOR 90 MG TABLET. PO SCH ×2 (08:51→21:09)
[2019-04-11] MEDS: GABAPENTIN 400 MG CAPSULE. PO SCH ×3 (08:51→21:10)
[2019-04-11] MEDS: PIPERACILLIN/TAZOBACTAM 3.375 GM in IV NORMAL SALINE 50ML 50 ML IV SCH ×3 (08:53→17:34)
[2019-04-11 08:57] LABS: % BANDS 3 % (0-9); % BASOS 1 % (0-3); % LYMPHS 2 % (24-48); % MONOS 2 % (0-10); % SEGS 92 % (35-66)
[2019-04-11 08:58] LABS: ANISOCYTOSIS SLIGHT; PLT ESTIMATE ADEQUATE (ADEQUATE)
[2019-04-11] MEDS ORDERED: VANCOMYCIN 1.25 GM in IV NORMAL SALINE 250ML 250 ML IV ONE (09:00)
--- NOTE | 2019-04-11 09:40 | HP ---
ADMIT DATE: 04/10/2019 HISTORY OF PRESENT ILLNESS: The patient is a 68-year-old male patient who was seen yesterday at the Emergency Room of [facility] where he presented with low blood pressure. His noted that his blood pressure is only in his 60 systolic. He normally runs at 110s systolic and it stayed low over several blood pressure measurements and therefore the patient was brought to the Emergency Room. He did note that he has more shortness of breath than usual when walking to the car on that morning; however, he denied any chest pain. He has had non-ST segment elevation myocardial infarction and had stents placed in his heart about 10 days ago. He was evaluated extensively in the Emergency Room, was found to be hypotensive with a systolic pressure that has eventually went up to the 90 systolic after receiving about 3 liters of fluid. His white cell count was high at 16,000 and his lactic acid was only 1.7. However, his first set of cardiac enzymes showed troponin to be 0.397. His BUN was slightly elevated at 39, creatinine was 1.2. B-type natriuretic peptide was 1700. All other labs seem to be unremarkable. His PT/INR was normal and toxic screen was positive for opiates and urinalysis showed that he was positive for nitrite and also there are too numerous to count wbc's indicating that probably has urinary tract infection. He was transferred to [facility] ICU with hypotension with multiple possible etiologies including sepsis due to UTI and obviously myocardial infarction as his troponin was high, although he has only recently had stents put in his heart. The patient himself denied any chest pain. PAST MEDICAL HISTORY: Significant for gastroesophageal reflux disease; benign prostatic hypertrophy; urinary retention, for which he has an indwelling Nichole catheter; recurrent urinary tract infection; neurogenic bladder; carotid stenosis; chronic hypertension; cervical spine stenosis, status post surgery; wheelchair bound due to neuropathy; has osteoarthritis; chronic pain syndrome for which he has spinal stimulator implanted; anxiety and depression. PAST SURGICAL HISTORY: Significant for spinal stimulator implantation, has also status post PCI with stent deployment. FAMILY HISTORY: Noncontributory. SOCIAL HISTORY: He is , lives with his and apparently continues to smoke. ALLERGIES: He has no known drug allergies. MEDICATIONS: He continues to be on aspirin 81 mg once a day, meloxicam 15 mg once a day, oxycodone/APAP 10/325 one tablet every 6 hours as needed, gabapentin 600 mg 3 times a day, amitriptyline 25 mg daily, Ambien 5 mg at bedtime and Myrbetriq 50 mg daily. He is also on tizanidine and was started on Brilinta 90 mg twice a day after his most recent cardiac catheterization and stent deployment. PHYSICAL EXAMINATION: GENERAL: On arrival to the Emergency Room of [facility], he apparently looked well and was clearly in no apparent distress. VITAL SIGNS: His heart rate was 79, blood pressure was 80/61, temperature was 97.8, respiratory rate was 20, and oxygen saturation was 99%. HEAD, EYES, EARS, NOSE AND THROAT: Showed he is normocephalic, atraumatic. NECK: Supple. HEART: Showed normal first and second heart sounds. No gallop, rub or murmur. CHEST: Shows central trachea, equal bilateral chest expansion and air entry, vesicular breath sounds. No crepitation or rhonchi. ABDOMEN: Distended, soft, nontender. NEUROLOGIC: He was awake, alert, responding appropriately. All his cranial nerves are intact. There was no obvious neurological deficit, although he is mostly wheelchair bound. He has had an EKG done there, which showed that he was in sinus rhythm with 100 beats per minute, left axis deviation, corrected QT interval of [address]-segment elevation. His chest x-ray showed that the patient has mild cardiomegaly that is unchanged. He has mild elevation of the right hemidiaphragm. The costophrenic angles are clear and well demarcated, left-sided cardiac pacer is unchanged. ASSESSMENT AND PLAN: The patient has received 3 liters of oxygen and we did order blood cultures and urine culture and was started on IV ceftriaxone. In fact, we started him on vancomycin and piperacillin/tazobactam and was transferred to [facility] ICU with possibility of sepsis. His blood pressure at that time was 90 mmHg systolic. CIRA GUADALUPE MD DR: CLAUDIA/ceci JOB#: [id number] / [id number]
--- NOTE | 2019-04-11 10:16 | NUR ---
PICC Pre-insertion note: Allergies and reactions adhesive INR n/a BUN 42 Cr 1.1 Platelets 179 Blood culture done n/a blood culture results n/a Order Verified yes Consent signed yes Previous PICC placement yes Past Medical/Surgical history and current diagnosis reviewed yes Patient Medical /Surgical History Related to PICC line placement Automatic Implantable Cardioverter Defibrillator (AICD) Infectious Disease Consult Pacemaker Past central line or venous access device placement Vascular/Surgery arms Special considerations for PICC line placement Anticoagulation therapy yes PICC placement indication Multiple/ Frequent blood draws, Poor peripheral intravenous access name of PICC Nurse Mary Ellen Rivera RN
--- NOTE | 2019-04-11 11:01 | NUR ---
PICC INSERTION NOTE: Procedure: Following complete explanation of the PICC procedure including the indications, risks, and potential complications, informed consent was obtained. The possibility for infection was discussed along with signs, symptoms, and prevention. All the questions were answered. Written and verbal patient education was provided. Hand hygiene performed. Standardized central line checklist was utilized. The patient was placed in the supine position, the arm was prepped with chlorhexidine and patient draped with maximum sterile barrier. 2 mL 1% lidocaine was infiltrated into the skin to provide local anesthesia. A thorough assessment of LEFT upper extremity completed. Using real-time ultrasound guidance and standardized micro puncture set, the BRACHIAL vein was punctured and a peel away sheath was placed using the modified Seldinger technique. A tip location device was used to ensure adequate catheter placement. The catheter was secured using a securement device and an antimicrobial patch was applied directly on the insertion site followed by a transparent dressing. All ports withdraw blood and flush without resistance. Patient tolerated the procedure without apparent complication(s). TRIPLE Lumen Power PICC placement. ALLOWED FOR BLOOD DRAW HOWEVER UNSURE OF TIP LOCATION. CHEST XRAY ORDERED. TIP LOCATED IN JUGULAR VEIN. Complications: HAD TO REMOVE AND REINSERT.
[2019-04-11] MEDS: SERTRALINE 50 MG TABLET. PO SCH (11:41)
[2019-04-11] MEDS: MELOXICAM 7.5 MG TABLET PO SCH (11:41)
[2019-04-11] MEDS: LIDOCAINE (700MG/PATCH) PATCH. TD SCH (11:42)
--- NOTE | 2019-04-11 11:42 | RAD ---
Single view of the chest. 04/11/2019 11:05 AM Indication: PICC line placement Comparison: None Findings: Lordotic projection noted. There is a left upper extremity PICC line the tip directed cephalad likely into the internal jugular vein. The tip is nonvisualized. Elevation of the right hemidiaphragm is seen. Cardiomegaly noted. Mild central vascular congestion is seen. No pneumothorax is identified. Left-sided pacemaking device noted. No acute bony changes are seen. IMPRESSION: 1. Left upper extremity PICC line is malpositioned with tip directed cephalad, but distal tip not included on study, likely into the jugular venous system. Repositioning and repeat radiograph recommended. 2. Cardiomegaly and mild central vascular congestion Results called to the patient's nurse at 11:40 AM Electronically signed by: Fernando Richmond MD (04/11/2019 11:39 AM) [id number]
--- NOTE | 2019-04-11 12:30 | NUR ---
PICC Insertion Note- Procedure: Following complete explanation of the PICC procedure including the indications, risks, and potential complications, informed consent was obtained. The possibility for infection was discussed along with signs, symptoms, and prevention. All the questions were answered. Written and verbal patient education was provided. Hand hygiene performed. Standardized central line checklist was utilized. The patient was placed in the supine position, the arm was prepped with chlorhexidine and patient draped with maximum sterile barrier. 2 mL 1% lidocaine was infiltrated into the skin to provide local anesthesia. A thorough assessment of left upper extremity completed. Using real-time ultrasound guidance and standardized micro puncture set, the brachial vein was punctured and a peel away sheath was placed using the modified Seldinger technique. A tip location device was used to ensure adequate catheter placement. The catheter was secured using a securement device and an antimicrobial patch was applied directly on the insertion site followed by a transparent dressing. All ports withdraw blood and flush without resistance. Patient tolerated the procedure without apparent complication(s). Triple Lumen Power PICC placement successful and uncomplicated. Chest xray ordered to verify placement. Tip believed to be in position in svc. Awaiting results of xray to confirm. Complications: First line placed malpositioned and was unable to do line over transfer to replace. Line pulled and new access was obtained. New catheter trimmed at 47cm with 3cm visible at insertion site. Awaiting xray results to confirm placement. Addendum: 04/11/19 at 1722 by TOM NUNES RN PICC line positioned in CAJ/SVC.
--- NOTE | 2019-04-11 12:33 | PN ---
DATE: 04/11/2019 SUBJECTIVE: The patient is resting slightly propped up in bed, in no apparent distress. He is awake, alert. On questioning him, he denied any complaint. In particular, he denied any chest pain or shortness of breath. Denied any nausea, vomiting or diarrhea. Denied any hematemesis, melena, hematochezia, or hematuria. When I examined him, the nursing staff stated that he continued to be hypotensive despite receiving a total of 4000 mL of normal saline and we did start him on Levophed. PHYSICAL EXAMINATION: GENERAL: When I examined him this morning, he was definitely pale, but not jaundiced or cyanosed. No lymphadenopathy, no thyromegaly. No jugular venous distension. No limb edema. VITAL SIGNS: His heart rate was 77, blood pressure was 98/54, temperature was 97.8, respiratory rate was 25, and oxygen saturation was 94%. HEAD, EYES, EARS, NOSE AND THROAT: Showed normocephalic, atraumatic. NECK: Supple. HEART: Showed normal first and second heart sounds with no gallop, rub or murmur. CHEST: Shows central trachea, equal bilateral chest expansion and air entry, vesicular breath sounds. No crepitation or rhonchi. ABDOMEN: Distended, soft, nontender. No guarding or rigidity. No organomegaly. All hernial orifices intact. Bowel sounds normal. NEUROLOGIC: He was awake, alert, responding appropriately. All his cranial nerves are intact. He moves extremities without difficulty, although obviously he is mostly bedbound, chair bound. His intake over the last 24 hours was 4150, output was 1015. LABORATORY DATA: His lab work this morning showed a white cell count 7600, hemoglobin 9.1, hematocrit 27, MCV 100, and platelet count of 179,000 with normal manual differential. Serum sodium was 143, potassium 4.1, chloride 109, bicarbonate 23, anion gap of 111, BUN of 42, creatinine 1.1, estimated GFR was 67 mL per minute, his glucose 106, calcium was 7.9 and procalcitonin was 0.24, which obviously makes sepsis high likely, although his H and H has dramatically dropped from 13.9 and 36 down to 9.1 and 27.1. His BUN is also disproportionately high consistent with probably a GI bleed. He is currently on meloxicam, aspirin and Brilinta, which obviously makes bleeding highly likely given all these medications. In summary, this is a 68-year-old male patient who came in with hypotension with systolic pressure in the 60s. He probably has urinary tract infection and sepsis as part of it. He probably has also GI bleed. His troponin was elevated at [facility]. Unfortunately, they were not repeated here. We will order that and I will make sure to check his stool for occult blood. We will arrange for him to have a PICC line. Continue with Levophed. There is possibility obviously he has autonomic dysreflexia as he has what looks like cervical myelopathy. CIRA GUADALUPE MD DR: CLAUDIA/ceci JOB#: [id number] / [id number]
--- NOTE | 2019-04-11 12:37 | NUR ---
Patient has levophed going through a central line. We discussed picc line orders with Dr. Richard, and picc line is being inserted. We are frequently checking the peripheral iv, and it is still patent. No evidence of extravasation. Addendum: 04/11/19 at 1314 by NASH TAYLOR RN RN Correction: levophed going through peripheral line.
--- NOTE | 2019-04-11 12:47 | NUR ---
PICC Pre-insertion Note: Allergies and reactions adhesive INR n/a BUN 42 Cr 1.1 Platelets 179 Blood culture done n/a blood culture results n/a Order Verified yes Consent signed yes Previous PICC placement yes Past Medical/Surgical history and current diagnosis reviewed yes Patient Medical /Surgical History Related to PICC line placement Automatic Implantable Cardioverter Defibrillator (AICD) Infectious Disease consult Pacemaker Past central line or venous access device placement Special considerations for PICC line placement Anticoagulation therapy PICC placement indication Multiple/ Frequent blood draws, Poor peripheral intravenous access name of PICC Nurse Jailene Sun RN Addendum: 04/11/19 at 1250 by TOM SUN RN Pre-insertion at 1200 Addendum: 04/11/19 at 1250 by TOM SUN RN Amended: Links added.
--- NOTE | 2019-04-11 13:06 | RAD ---
CHEST AP ONLY Clinical indications: PICC line placement. COMPARISON: None available. Findings: Left upper extremity PICC line is in place. The line can be seen extending to at least the medial aspect of the left subclavian vein. The line cannot be seen past this point and may be hidden by pacemaker lead wires which are present. Therefore, shallow and steep LPO chest x-ray views may be helpful to evaluate the position of the PICC line. There is severe elevation of the right hemidiaphragm extending to the right hilum. There is peribronchial thickening bilaterally most prominent within the right upper lobe. No pleural effusion or pneumothorax or lung consolidation is seen. The heart size is mildly prominent which is secondary to elevation of the right hemidiaphragm and AP magnification. The mediastinum and pulmonary vasculature are unremarkable. IMPRESSION: PICC line tip is difficult to visualize. Therefore, recommend shallow and steep LPO portable AP views of the left chest for further evaluation. Severe elevation of the right hemidiaphragm. Bilateral peribronchial thickening most prominent within the right upper lobe which may represent acute or chronic bronchitis. Electronically signed by: Jorje Worley MD (04/11/2019 1:03 PM) [id number]
--- NOTE | 2019-04-11 14:46 | NUR ---
SS following for discharge planning. SS reviewed pt chart. Pt is from home and is currently on room air. No discharge needs noted at this time. SS will continue to follow for discharge planning.
[2019-04-11 15:17] LABS: HEMATOCRIT 26.7 % (39.0-53.0); HEMOGLOBIN 9.1 g/dL (13.0-17.5)
[2019-04-11] MEDS: LACTOBACILLUS RHAMNOSUS GG 1 CAPSULE. PO SCH (21:10)
[2019-04-11] MEDS: AMITRIPTYLINE HCL 25 MG TABLET. PO SCH (21:10)
[2019-04-11] MEDS: ATORVASTATIN CALCIUM 40 MG TABLET. PO SCH (21:10)
[2019-04-12] VITALS (28 sets, daily range): BP systolic 78–140; BP diastolic 45–77
[2019-04-12] MEDS: PIPERACILLIN/TAZOBACTAM 3.375 GM in IV NORMAL SALINE 50ML 50 ML IV SCH ×4 (00:08→17:21)
[2019-04-12] MEDS: oxyCODONE/APAP 10/325 1 TAB TABLET PO PRN ×3 (00:54→17:26)
[2019-04-12] MEDS: tiZANidine 4 MG TABLET. PO SCH ×3 (06:08→21:24)
[2019-04-12 06:24] LABS: HEMATOCRIT 23.8 % (39.0-53.0); HEMOGLOBIN 8.3 g/dL (13.0-17.5); RED BLOOD COUNT 2.39 x10^6/uL (4.30-5.70)
[2019-04-12 06:39] LABS: ALBUMIN 2.5 g/dL (3.4-5.0); ALBUMIN/GLOBULIN RATIO 0.8 (1.0-1.7); CALCIUM 7.8 mg/dL (8.5-10.1); GFR 74.8; POTASSIUM 4.2 mmol/L (3.5-5.1); TOTAL BILIRUBIN 0.4 mg/dL (0.2-1.0); TOTAL PROTEIN 5.6 g/dL (6.4-8.2)
--- NOTE | 2019-04-12 07:53 | PDOC ---
Infectious Disease Note Subjective Subjective pt is feeling good ROS ROS no n/v/d/sob Vital Sign Vital Signs Vital Signs Date Time Temp Pulse Resp B/P (MAP) Pulse Ox O2 Delivery O2 Flow Rate FiO2 04/12/19 06:30 87 25 98/45 (62) 92 Nasal Cannula 2.0 04/12/19 04:00 98.9 98.9 Physical Exam PHYSICAL EXAM HEENT: Pupils equally round, reactive. Normal conjunctivae. Oral cavity: Pharynx is pink and moist. NECK: Supple. LUNGS: Clear to auscultation. HEART: S1, S2. Pacemaker. ABDOMEN: Obese, soft, nontender with bowel sounds present. GENITOURINARY: Indwelling Nichole in place. EXTREMITIES: 1+ edema in lower extremities bilaterally. No cyanosis. SKIN: Warm without generalized rash. NEUROLOGIC: Alert and oriented x 3. Chronic lower extremity weakness. Labs Lab Laboratory Tests Test 04/11/19 08:27 04/11/19 15:00 04/12/19 06:00 Lactic Acid Level 1.4 mmol/L (0.4-2.0) Troponin I Quantitative 0.323 ng/mL (0.000-0.055) Hemoglobin 9.1 g/dL (13.0-17.5) 8.3 g/dL (13.0-17.5) Hematocrit 26.7 % (39.0-53.0) 23.8 % (39.0-53.0) White Blood Count 8.0 x10^3/uL (4.0-11.0) Red Blood Count 2.39 x10^6/uL (4.30-5.70) Mean Corpuscular Volume 99 fL (79-100) Mean Corpuscular Hemoglobin 35 pg (25-35) Mean Corpuscular Hemoglobin Concent 35 g/dL (31-37) Red Cell Distribution Width 16.0 % (11.5-14.5) Platelet Count 146 x10^3/uL (140-400) Sodium Level 142 mmol/L (136-145) Potassium Level 4.2 mmol/L (3.5-5.1) Chloride Level 109 mmol/L (98-107) Carbon Dioxide Level 25 mmol/L (21-32) Anion Gap 8 (6-14) Blood Urea Nitrogen 21 mg/dL (8-26) Creatinine 1.0 mg/dL (0.7-1.3) Estimated GFR (Cockcroft-Gault) 74.8 BUN/Creatinine Ratio 21 (6-20) Glucose Level 144 mg/dL (70-99) Calcium Level 7.8 mg/dL (8.5-10.1) Total Bilirubin 0.4 mg/dL (0.2-1.0) Aspartate Amino Transf (AST/SGOT) 17 U/L (15-37) Alanine Aminotransferase (ALT/SGPT) 12 U/L (16-63) Alkaline Phosphatase 80 U/L (46-116) Total Protein 5.6 g/dL (6.4-8.2) Albumin 2.5 g/dL (3.4-5.0) Albumin/Globulin Ratio 0.8 (1.0-1.7) Micro BC neg Urine, proteus Objective Assessment 1. Sepsis with hypotension, present on admission on 04/10. 2. Urinary tract infection present on admission ([facility]). 3. Leukocytosis. 4. Neurogenic bladder requiring self-catheterization, currently has an indwelling Nichole in place. 5. Partial paraplegia. 6. Elevated troponin. 7. Coronary artery disease, status post coronary stent placed on 03/31/2019. 8. Chronic diastolic heart failure. Plan Plan of Care Monitor VS/renal function closely f/u Blood and urine cultures from [facility] 04/10. Labs in am Supportive care [place] records reviewed cont [facility] supportive care soon to change to po D/W MARLI HUMPHRIES MD April 12, 2019 07:53
[2019-04-12] MEDS: SERTRALINE 50 MG TABLET. PO SCH (08:24)
[2019-04-12] MEDS: GABAPENTIN 400 MG CAPSULE. PO SCH ×3 (08:24→21:24)
[2019-04-12] MEDS: LACTOBACILLUS RHAMNOSUS GG 1 CAPSULE. PO SCH ×2 (08:24→21:24)
[2019-04-12] MEDS: MELOXICAM 7.5 MG TABLET PO SCH (08:24)
[2019-04-12] MEDS: TICAGRELOR 90 MG TABLET. PO SCH ×2 (08:24→21:24)
[2019-04-12] MEDS: ASPIRIN ENTERIC COATED 81 MG TABLET.DR. PO SCH (08:24)
[2019-04-12] MEDS: LIDOCAINE (700MG/PATCH) PATCH. TD SCH (08:25)
--- NOTE | 2019-04-12 09:48 | RAD ---
Chest, 3 views, 04/11/2019, 1:47 PM: HISTORY: Check PICC placement AP, RPO and LPO views were obtained as requested in an attempt to delineate a left PICC line. The catheter is partially obscured by overlying transvenous pacing leads, however, it does extend to the level the atrial caval junction. There has been no other significant change since earlier in the day. IMPRESSION: The left PICC extends to the level the atriocaval junction. Electronically signed by: Sandeep Silverman MD (04/11/2019 3:21 PM) [facility]
--- NOTE | 2019-04-12 11:58 | NUR ---
Cardiology consult called to April for elevated troponins, possible autonomic dysreflexia.
--- NOTE | 2019-04-12 13:25 | PDOC2 ---
CARDIAC CONSULT DATE OF CONSULT Date of Consult DATE: 04/12/19 TIME: 12:57 REASON FOR CONSULT Reason for Consult: hypotension, elevated troponin REFERRING PHYSICIAN Referring Physician: Jose Manuel SOURCE Source: Chart review, Patient HISTORY OF PRESENT ILLNESS HISTORY OF PRESENT ILLNESS This is a 68 yo male admitted initially at [facility] due to low BP. Spouse apparently took his BP and noted SBP in the 60s. He was also noted with SOA but no CP. He has had PCI with stent placement on 03/31/2019 with NSTEMI PAST MEDICAL HISTORY Cardiovascular: CAD, CHF (diastolic), HTN, MA, Hyperlipidemia, Other (carotid stenosis) CENTRAL NERVOUS SYSTEM: Periperal neuropathy GI: GERD Heme/Onc: Anemia NOS Psych: Anxiety, Depression Musculoskeletal: Osteoarthritis Infectious disease: Other (drug resistant E coli) Renal/: UTI, Benign prostatic enlarg., Other (chronic neurogenic bladder requiring catheterization) PAST SURGICAL HISTORY Past Surgical History: Pacemaker, Other (lower back surgery compliacated with infection leading to partial LE paralysis; cervical fusion; polypectomy) FAMILY HISTORY Family History noncontributory SOCIAL HISTORY Smoke: <1 pack per day ALCOHOL: none Drugs: None Lives: with Family CURRENT MEDICATIONS CURRENT MEDICATIONS Current Medications Medications (Trade) Dose Ordered Sig/Amanda Route PRN Reason Start Time Stop Time Status Last Admin Dose Admin Lactobacillus Rhamnosus (Culturelle) 1 cap BID PO 04/11/19 21:00 04/12/19 08:24 ALLERGIES ALLERGIES: Coded Allergies: adhesive (Verified Allergy, Intermediate, Rash, 05/23/15) ROS Review of System 14 point ROS evaluated with pertinent positives noted per HPI PHYSICAL EXAM General: Alert, Oriented X3, Cooperative, No acute distress HEENT: Atraumatic, Mucous membr. moist/pink Lungs: Other (diminished bases) Heart: Regular rate (SR), Normal S1, Normal S2, Other (3/6 systolic murmur to LLS border) Abdomen: Soft, No tenderness Extremities: No cyanosis, Other (trace LE edema) Neuro: Normal speech, Sensation intact Psych/Mental Status: Mental status NL, Mood NL MUSCULOSKELETAL: Osteoarthritic changes both hands, Other (partial paraplegia) VITALS VITALS Vital Signs Date Time Temp Pulse Resp B/P (MAP) Pulse Ox O2 Delivery O2 Flow Rate FiO2 04/12/19 12:00 Room Air 2.0 04/12/19 12:00 97.9 66 20 78/56 (63) 97 97.9 LABS Lab: Laboratory Tests Test 04/11/19 15:00 04/12/19 06:00 Hemoglobin 9.1 g/dL (13.0-17.5) 8.3 g/dL (13.0-17.5) Hematocrit 26.7 % (39.0-53.0) 23.8 % (39.0-53.0) White Blood Count 8.0 x10^3/uL (4.0-11.0) Red Blood Count 2.39 x10^6/uL (4.30-5.70) Mean Corpuscular Volume 99 fL (79-100) Mean Corpuscular Hemoglobin 35 pg (25-35) Mean Corpuscular Hemoglobin Concent 35 g/dL (31-37) Red Cell Distribution Width 16.0 % (11.5-14.5) Platelet Count 146 x10^3/uL (140-400) Sodium Level 142 mmol/L (136-145) Potassium Level 4.2 mmol/L (3.5-5.1) Chloride Level 109 mmol/L (98-107) Carbon Dioxide Level 25 mmol/L (21-32) Anion Gap 8 (6-14) Blood Urea Nitrogen 21 mg/dL (8-26) Creatinine 1.0 mg/dL (0.7-1.3) Estimated GFR (Cockcroft-Gault) 74.8 BUN/Creatinine Ratio 21 (6-20) Glucose Level 144 mg/dL (70-99) Calcium Level 7.8 mg/dL (8.5-10.1) Total Bilirubin 0.4 mg/dL (0.2-1.0) Aspartate Amino Transf (AST/SGOT) 17 U/L (15-37) Alanine Aminotransferase (ALT/SGPT) 12 U/L (16-63) Alkaline Phosphatase 80 U/L (46-116) Total Protein 5.6 g/dL (6.4-8.2) Albumin 2.5 g/dL (3.4-5.0) Albumin/Globulin Ratio 0.8 (1.0-1.7) ECHOCARDIOGRAM ECHOCARDIOGRAM <Conclusion> The Ejection Fraction is 50-55%. There is grossly normal LV segmental wall motion. Doppler and Color Flow revealed mild to moderate tricuspid regurgitation with an estimated PAP of 50 mmHg. There is moderate pulmonary hypertension. DATE: 04/01/19 1032 HEART CATH HEART CATH Conclusion 1. Elevated left sided filling pressures consistent with acute on chronic diastoilc heart failure. 2. Three vessel coronary disease with culprit lesion involving the LCx bifurcation. 3. Successful PCI of the proximal LCx with a 3.0/23 mm Xience BETINA, 2.5/15 Xience BETINA in the distal LCx. 4. Successful PCI of the mid LAD with implantation of a 3.5/18 mm BETINA Recommendations ASA 81mg daily Ticagrelor 90mg bid High dose statin therapy Cardiac rehab referral Smoking cessation. DATE: 03/31/19 1624 ASSESSMENT/PLAN ASSESSMENT/PLAN 1. Sepsis/shock/UTI: ID following 2. CAD: S/P PCI to LCx and LAD 03/31/2019. peaked trop at that time at 2.6 3. Elevated troponin: currently 0.3, CP free, suspect demand mediated induced by sepsis 4. Neurogenic bladder requiring self-catheterization with partial paraplegia 5. Hx of HTN: 6. Acute on chronic diastolic CHF: appears compensated currently. 7. PPM in situ: if no recent interrogation then will do one 8. Tobaccoism Recommendations 1. Hold BP meds. Continue ASA/brilinta. Recheck EKG. 2. Antibiotics per ID 3. Pressors as warranted. 4. Secondary prevention measures once BP is better. 5. Smoking Cessation GENEVIEVE GUERRA APRN April 12, 2019 13:25
--- NOTE | 2019-04-12 13:44 | PN ---
DATE: 04/12/2019 SUBJECTIVE: The patient is resting slightly propped up in bed, in no apparent distress. On questioning him, he denied any chest pain. Denied any shortness of breath, cough, phlegm or hemoptysis. His main complaint is pain in his lower extremities. He continues to require pressor support for his blood pressure. OBJECTIVE: GENERAL: On examining him, he was pale, but no jaundice or cyanosis. No lymphadenopathy, no thyromegaly. No jugular venous distention. Mild bilateral lower limb edema. VITAL SIGNS: His heart rate was 87, blood pressure was 98/45, his temperature was 98.9, respiratory rate was 25, and oxygen saturation was 92% on 2 liters of oxygen. HEAD, EYES, EARS, NOSE AND THROAT: Showed normocephalic, atraumatic. NECK: Supple. HEART: Showed normal first and second heart sounds. No gallop, rub or murmur. CHEST: Clear to auscultation. No crepitation or rhonchi. ABDOMEN: Distended, soft, nontender. NEUROLOGIC: He is awake, alert, responding appropriately. All cranial nerves intact. He moves upper extremities without difficulty, has functional paraplegia with neurogenic bladder requiring indwelling Nichole catheter. INS AND OUTS: His intake over the last 24 hours was 4150, output was 1015. LABORATORY DATA: As of this morning, his serum sodium was 142, potassium 4.2, chloride 109, bicarbonate 25, anion gap of 8, BUN 21, creatinine 1, estimated GFR was 74 mL per minute, his glucose was 144. His calcium was 7.8. Total bilirubin, AST, ALT, alkaline phosphatase were normal. Total protein was 5.6, albumin was 2.5 and his troponin 0.365 and 0.323. His white cell count was 8000, hemoglobin 8.3, hematocrit 23.8, MCV 99 and platelet count of 146,000. ASSESSMENT: 1. Sepsis with hypotension. 2. Urinary tract infection present on admission. 3. Leukocytosis. 4. Neurogenic bladder requiring self-catheterization. Currently, has an indwelling Nichole catheter. 5. Functional paraplegia. 6. Elevated troponin. 7. Coronary artery disease, status post coronary stent deployment recently and chronic diastolic congestive heart failure. PLAN: To continue with IV antibiotic. Continue with IV fluid. We will consult the radio dispatcher given the elevated troponin. CIRA GUADALUPE MD DR: CLAUDIA/ceci JOB#: [id number] / [id number]
--- NOTE | 2019-04-12 13:56 | EKG ---
[facility] [address] [place] [address] Test Date: 2019-04-12 Test Time: 13:47:40 Pat Name: GURWINDER LUNSFORD Department: Room: 108 1 Gender: M Freight Agent: SHUBHAM WALTERSB: 1950 Requested By: GENEVIEVE GUERRA Order Number: [id number] Reading MD: Measurements Intervals [place] Rate: 71 P: 90 LA: 166 QRS: -39 QRSD: 118 T: 39 QT: 418 QTc: 454 Interpretive Statements SINUS RHYTHM ABNORMAL LEFT AXIS DEVIATION ABNORMAL ECG RI6.01 No previous ECG available for comparison
[2019-04-12] MEDS: AMITRIPTYLINE HCL 25 MG TABLET. PO SCH (21:24)
[2019-04-12] MEDS: ATORVASTATIN CALCIUM 40 MG TABLET. PO SCH (21:24)
[2019-04-13] VITALS (25 sets, daily range): BP systolic 77–137; BP diastolic 44–85
[2019-04-13] MEDS: PIPERACILLIN/TAZOBACTAM 3.375 GM in IV NORMAL SALINE 50ML 50 ML IV SCH ×4 (00:03→17:48)
[2019-04-13] MEDS: oxyCODONE/APAP 10/325 1 TAB TABLET PO PRN ×4 (01:27→16:45)
[2019-04-13 05:19] LABS: HEMOGLOBIN 7.1 g/dL (13.0-17.5); RED BLOOD COUNT 2.09 x10^6/uL (4.30-5.70); RED CELL DISTRIBUTION WIDTH 15.8 % (11.5-14.5); WHITE BLOOD COUNT 8.9 x10^3/uL (4.0-11.0)
--- NOTE | 2019-04-13 05:26 | PDOC ---
Infectious Disease Note Subjective Subjective pt is feeling good ROS ROS no n/v/d/ Vital Sign Vital Signs Vital Signs Date Time Temp Pulse Resp B/P (MAP) Pulse Ox O2 Delivery O2 Flow Rate FiO2 04/13/19 04:00 98.2 66 24 91/47 (62) 94 Nasal Cannula 2.0 98.2 Physical Exam PHYSICAL EXAM HEENT: Pupils equally round, reactive. Normal conjunctivae. Oral cavity: Pharynx is pink and moist. NECK: Supple. LUNGS: Clear to auscultation. HEART: S1, S2. Pacemaker. ABDOMEN: Obese, soft, nontender with bowel sounds present. GENITOURINARY: Indwelling Nichole in place. EXTREMITIES: 1+ edema in lower extremities bilaterally. No cyanosis. SKIN: Warm without generalized rash. NEUROLOGIC: Alert and oriented x 3. Chronic lower extremity weakness. Labs Lab Laboratory Tests Test 04/12/19 06:00 White Blood Count 8.0 x10^3/uL (4.0-11.0) Red Blood Count 2.39 x10^6/uL (4.30-5.70) Hemoglobin 8.3 g/dL (13.0-17.5) Hematocrit 23.8 % (39.0-53.0) Mean Corpuscular Volume 99 fL (79-100) Mean Corpuscular Hemoglobin 35 pg (25-35) Mean Corpuscular Hemoglobin Concent 35 g/dL (31-37) Red Cell Distribution Width 16.0 % (11.5-14.5) Platelet Count 146 x10^3/uL (140-400) Sodium Level 142 mmol/L (136-145) Potassium Level 4.2 mmol/L (3.5-5.1) Chloride Level 109 mmol/L (98-107) Carbon Dioxide Level 25 mmol/L (21-32) Anion Gap 8 (6-14) Blood Urea Nitrogen 21 mg/dL (8-26) Creatinine 1.0 mg/dL (0.7-1.3) Estimated GFR (Cockcroft-Gault) 74.8 BUN/Creatinine Ratio 21 (6-20) Glucose Level 144 mg/dL (70-99) Calcium Level 7.8 mg/dL (8.5-10.1) Total Bilirubin 0.4 mg/dL (0.2-1.0) Aspartate Amino Transf (AST/SGOT) 17 U/L (15-37) Alanine Aminotransferase (ALT/SGPT) 12 U/L (16-63) Alkaline Phosphatase 80 U/L (46-116) Total Protein 5.6 g/dL (6.4-8.2) Albumin 2.5 g/dL (3.4-5.0) Albumin/Globulin Ratio 0.8 (1.0-1.7) Micro BC neg Urine, proteus Objective Assessment 1. Sepsis with hypotension, present on admission on 04/10. 2. Urinary tract infection present on admission ([facility]). 3. Leukocytosis. 4. Neurogenic bladder requiring self-catheterization, currently has an indwelling Nichole in place. 5. Partial paraplegia. 6. Elevated troponin. 7. Coronary artery disease, status post coronary stent placed on 03/31/2019. 8. Chronic diastolic heart failure. Plan Plan of Care Monitor VS/renal function closely f/u Blood and urine cultures from [facility] 04/10. Labs in am Supportive care [place] records reviewed cont [facility] supportive care soon to change to po D/W RN d/w MARLI RAZO MD April 13, 2019 05:26
[2019-04-13] MEDS: tiZANidine 4 MG TABLET. PO SCH ×3 (05:35→21:29)
[2019-04-13 05:44] LABS: ALBUMIN 2.3 g/dL (3.4-5.0); ALBUMIN/GLOBULIN RATIO 0.8 (1.0-1.7); CALCIUM 7.8 mg/dL (8.5-10.1); GFR 74.8; POTASSIUM 3.9 mmol/L (3.5-5.1); TOTAL BILIRUBIN 0.5 mg/dL (0.2-1.0); TOTAL PROTEIN 5.3 g/dL (6.4-8.2)
[2019-04-13] MEDS: ASPIRIN ENTERIC COATED 81 MG TABLET.DR. PO SCH (08:37)
[2019-04-13] MEDS: MELOXICAM 7.5 MG TABLET PO SCH (08:37)
[2019-04-13] MEDS: TICAGRELOR 90 MG TABLET. PO SCH (08:37)
[2019-04-13] MEDS: LACTOBACILLUS RHAMNOSUS GG 1 CAPSULE. PO SCH ×2 (08:37→21:29)
[2019-04-13] MEDS: GABAPENTIN 400 MG CAPSULE. PO SCH ×3 (08:37→21:29)
[2019-04-13] MEDS: LIDOCAINE (700MG/PATCH) PATCH. TD SCH (08:38)
[2019-04-13] MEDS: SERTRALINE 50 MG TABLET. PO SCH (08:39)
[2019-04-13] MEDS: IV NORMAL SALINE 1000ML BAG 1,000 ML IV SCH ×2 (11:55→17:48)
--- NOTE | 2019-04-13 13:09 | PDOC ---
INDIRA HENLEY OUTREACH LIBRARIAN 04/13/19 1309: CARDIO Progress Notes Date and Time Date of Service 04/13/19 Time of Evaluation 1310 Subjective Subjective: No Chest Pain, No shortness of breath Vitals Vitals Vital Signs Date Time Temp Pulse Resp B/P (MAP) Pulse Ox O2 Delivery O2 Flow Rate FiO2 04/13/19 12:00 98.1 74 18 123/75 (91) 98 Nasal Cannula 2.0 98.1 Weight Weight [ ] Input and Output Intake and Output Intake and Output 04/13/19 06:59 Intake Total 1228.72 ml Output Total 1210 ml Balance 18.72 ml Intake Oral 1130 ml IV Total 98.72 ml Output Urine Total 1210 ml Laboratory Labs Laboratory Tests Test 04/13/19 05:00 White Blood Count 8.9 x10^3/uL (4.0-11.0) Red Blood Count 2.09 x10^6/uL (4.30-5.70) Hemoglobin 7.1 g/dL (13.0-17.5) Hematocrit 21.0 % (39.0-53.0) Mean Corpuscular Volume 101 fL (79-100) Mean Corpuscular Hemoglobin 34 pg (25-35) Mean Corpuscular Hemoglobin Concent 34 g/dL (31-37) Red Cell Distribution Width 15.8 % (11.5-14.5) Platelet Count 128 x10^3/uL (140-400) Sodium Level 141 mmol/L (136-145) Potassium Level 3.9 mmol/L (3.5-5.1) Chloride Level 108 mmol/L (98-107) Carbon Dioxide Level 24 mmol/L (21-32) Anion Gap 9 (6-14) Blood Urea Nitrogen 19 mg/dL (8-26) Creatinine 1.0 mg/dL (0.7-1.3) Estimated GFR (Cockcroft-Gault) 74.8 BUN/Creatinine Ratio 19 (6-20) Glucose Level 110 mg/dL (70-99) Calcium Level 7.8 mg/dL (8.5-10.1) Total Bilirubin 0.5 mg/dL (0.2-1.0) Aspartate Amino Transf (AST/SGOT) 13 U/L (15-37) Alanine Aminotransferase (ALT/SGPT) 12 U/L (16-63) Alkaline Phosphatase 58 U/L (46-116) Total Protein 5.3 g/dL (6.4-8.2) Albumin 2.3 g/dL (3.4-5.0) Albumin/Globulin Ratio 0.8 (1.0-1.7) Physical Exam HEENT: Neck Supple W Full Motion Chest: Symmetric LUNGS: Other (diminished bases) Heart: S1S2, murmurs (2/6 systolic murmur ) Abdomen: Soft N/T Extremities: Other (trace bilateral LE edema ) Neurology: alert, oriented, follow commands Assessment Assessment 1. Sepsis/shock/UTI 2. CAD: S/P PCI to LCx and LAD 03/31/2019. 3. Elevated troponin: currently 0.36. CP free, most probably type II, demand ischemia induced by sepsis 4. Anemia; hgb drop to 7.0 today. No obvious bleeding. 5. Neurogenic bladder requiring self-catheterization with partial paraplegia 6. Hx of HTN: low normotensive 7. Acute on chronic diastolic CHF: clinically compensated 8. PPM in situ 9. Tobaccoism Recommendations Continue to hold BP meds. Resume when consistently adequate. Secondary prevention as able. Hold Brilinta for now given significant anemia. Continue ASA Transfused as warranted Antibiotics per ID Reinforced smoking cessation JAEL JACOBSEN MD 04/13/19 1669: CARDIO Progress Notes Plan Plan Pt. seen and examined. Agree with above FURNACE HAND note. INDIRA HENLEY APRN April 13, 2019 13:09 JAEL JACOBSEN MD April 13, 2019 18:59
[2019-04-13 14:03] LABS: HEMATOCRIT 20.8 % (39.0-53.0)
--- NOTE | 2019-04-13 14:31 | NUR ---
SS following up with discharge planning. Pt now requiring oxygen. No discharge needs noted at this time. SS will continue to follow for discharge planning.
--- NOTE | 2019-04-13 14:35 | NUR ---
GI consult called to Lois Aquino.
--- NOTE | 2019-04-13 15:03 | PN ---
DATE: 04/13/2019 SUBJECTIVE: The patient is resting, slightly propped up in bed, in no apparent respiratory distress. He is awake, alert, responding appropriately. On questioning him, he denied any complaint and stated he had a good night sleep. The nursing staff, however, was concerned that he dropped his H and H to 7.1 and 21. He is on meloxicam and Brilinta and it is quite possible that he bled. In fact, when he came initially, his BUN was disproportionately high to creatinine and bleeding might have contributed to his low blood pressure. PHYSICAL EXAMINATION: GENERAL: When I saw him this morning, he was pale, but not jaundiced or cyanosed from thyromegaly. No jugular venous distention. No lower limb edema. VITAL SIGNS: His heart rate was 62, blood pressure was 105/51, temperature was 97.8, respiratory rate was 24 and oxygen saturation was 99% on 2 liters of oxygen by nasal cannula. HEENT: Examination of the head, eyes, ears, nose and throat showed normocephalic, atraumatic. NECK: Supple. HEART: Showed normal first and second heart sounds. No gallop, rub or murmur. CHEST: Clear to auscultation. No crepitation or rhonchi. ABDOMEN: Distended, soft and nontender. NEUROLOGIC: He was awake, alert, responding appropriately. All cranial nerves intact. He moved upper extremities without difficulty. He has functional paraplegia with neurogenic bladder, requiring indwelling Nichole catheter. His intake over the last 24 hours was 990, output was 1560. LABORATORY DATA: As of this morning, his serum sodium was 141, potassium 3.9, chloride 108, bicarbonate 24, anion gap of 9, BUN 19, creatinine 1, estimated GFR was 75 mL per minute, his glucose was 110, calcium was 7.8. Total bilirubin, AST, ALT and alkaline phosphatase were normal. His total protein was 5.3, albumin 2.3. His white cell count was 8900, hemoglobin 7.1, hematocrit 21, MCV 101 and platelet count of 128,000. ASSESSMENT: 1. Sepsis with hypotension, present on admission. 2. Urinary tract infection, present on admission. 3. Leukocytosis, resolved. 4. Neurogenic bladder, requiring self-catheterization. Currently, he has an indwelling Nichole catheter. 5. Functional paraplegia. 6. Elevated troponin. 7. Coronary artery disease, status post coronary stent deployment recently. 8. Chronic diastolic congestive heart failure. 9. Blood loss anemia with hemoglobin dropping down to 7 and hematocrit to 19, likely due to gastrointestinal bleed as he is on meloxicam and Brilinta. PLAN: My plan is to continue obviously with IV fluid, IV antibiotic. We will repeat his H and H at 02:00 this afternoon. We will send stool for occult blood. We will ask the fx artist if we can hold the Brilinta at least for the time being. CIRA GUADALUPE MD DR: CLAUDIA/ceci JOB#: [id number] / [id number]
--- NOTE | 2019-04-13 15:44 | PDOC2 ---
GI CONSULT Reason For Consult: Possible GI bleed, low Hgb HPI: HPI: Pleasant 68 y/o male admitted w/ hypotension and sepsis/UTI. Additionally, recent NSTEMI w/ stent placement on ASA and Brilinta. According to other notes, Hgb was 13.6 @ [facility] on 04/10. At [facility] the next day was 9.1 and today is 7. Staff reports "dark stool" on Thursday (04/11) but no bleeding or stools since. He denies any bleeding including hematemesis, hematochezia, and melena or h/o anemia. Prior to stent placement was on ASA. GI-gama has a h/o heartburn. Used to treat w/ baking soda, stopped that and started a pill a couple years ago but stopped due to insurance. Didn't have recurrent issues w/ heartburn until recently. No dysphagia. No n/v. Not a great appetite - typically eats 1 meal daily. No weight loss. Recently no diarrhea or constipation but has had issues in the past with both. No current abd pain though recently had some LUQ pain when laying down (that resolved after stooling). Takes Percocet for chronic pain, no NSAIDs (though note Mobic was recently stopped). Had a colonoscopy w/ Dr. Avalos in 2014 - cannot view procedure report but pathology indicate adenomatous and hyperplastic polyps. Thinks he had a normal EGD @ in 2002 or 2004. No GB, liver, pancreas, or PUD history. PMH: PMH: CAD, CHF, HTN, ME, HLD, carotid stenosis, peripheral neuropathy, GERD, colon polyps, anxiety/depression, OA, UTI, E coli, BPH, neurogenic bladder (self caths), pacemaker, back surgery leading to partial LE paralysis, cervical fusion FH: Family History: Other (mother and MGM - GB disease) Social History: Smoke: 1 pack per day (1.5 ppd) ALCOHOL: other (heavily in the past, sober x 15 years) Drugs: None ROS: GEN: Denies fevers, chills, sweats HEENT: Denies blurred vision, sore throat CV: Denies chest pain RESP: +chronic SOA GI: Per HPI : Denies hematuria, dysuria ENDO: Denies weight changes NEURO: Denies confusion, dizziness MSK: +chronic pain SKIN: Denies jaundice, pruritus Vitals: Vitals: Vital Signs Date Time Temp Pulse Resp B/P (MAP) Pulse Ox O2 Delivery O2 Flow Rate FiO2 04/13/19 13:15 69 21 104/58 (73) 97 Nasal Cannula 2.0 04/13/19 12:00 98.1 98.1 Labs: Labs: Laboratory Tests Test 04/13/19 05:00 04/13/19 13:45 White Blood Count 8.9 x10^3/uL (4.0-11.0) Red Blood Count 2.09 x10^6/uL (4.30-5.70) Hemoglobin 7.1 g/dL (13.0-17.5) 7.0 g/dL (13.0-17.5) Hematocrit 21.0 % (39.0-53.0) 20.8 % (39.0-53.0) Mean Corpuscular Volume 101 fL (79-100) Mean Corpuscular Hemoglobin 34 pg (25-35) Mean Corpuscular Hemoglobin Concent 34 g/dL (31-37) Red Cell Distribution Width 15.8 % (11.5-14.5) Platelet Count 128 x10^3/uL (140-400) Sodium Level 141 mmol/L (136-145) Potassium Level 3.9 mmol/L (3.5-5.1) Chloride Level 108 mmol/L (98-107) Carbon Dioxide Level 24 mmol/L (21-32) Anion Gap 9 (6-14) Blood Urea Nitrogen 19 mg/dL (8-26) Creatinine 1.0 mg/dL (0.7-1.3) Estimated GFR (Cockcroft-Gault) 74.8 BUN/Creatinine Ratio 19 (6-20) Glucose Level 110 mg/dL (70-99) Calcium Level 7.8 mg/dL (8.5-10.1) Total Bilirubin 0.5 mg/dL (0.2-1.0) Aspartate Amino Transf (AST/SGOT) 13 U/L (15-37) Alanine Aminotransferase (ALT/SGPT) 12 U/L (16-63) Alkaline Phosphatase 58 U/L (46-116) Total Protein 5.3 g/dL (6.4-8.2) Albumin 2.3 g/dL (3.4-5.0) Albumin/Globulin Ratio 0.8 (1.0-1.7) Allergies: Coded Allergies: adhesive (Verified Allergy, Intermediate, Rash, 05/23/15) Medications: Current Medications Medications (Trade) Dose Ordered Sig/Amanda Route PRN Reason Start Time Stop Time Status Last Admin Dose Admin Sodium Chloride 1,000 ml @ 100 mls/hr Q10H IV 04/13/19 10:00 04/13/19 11:55 Imaging: Imaging: CXR 04/11 IMPRESSION: The left PICC extends to the level the atriocaval junction. PE: GEN: NAD HEENT: Atraumatic, PERRL LUNGS: NC HEART: RRR +murm ABD: NABS, S/ND/NT EXTREMITY: No edema SKIN: No rashes, no jaundice NEURO/PSYCH: A & O 3, partial paraplegia A/P: A/P: Sepsis/UTI, hypotension CAD, recent NSTEMI/stent placement - was on ASA and Brilinta Normocytic anemia, recent "dark stool" Heartburn H/o alternating bowel habits CRC screen, h/o adenomatous polyps - last colonoscopy in 2014 Chronic pain, partial paraplegia, neurogenic bladder ?NSAID use -- Hgb drifting, normal BUN. Note plans for transfusion and fecal occult x 3. Add PPI. Check anemia parameters (though unable to order retic count). Other per Dr. Avalos. MARI HARPER April 13, 2019 15:44
--- NOTE | 2019-04-13 16:20 | NUR ---
Patient arrived in room 658. Placed on telemetry, VSS. Patient oriented to room and watching TV.
[2019-04-13] MEDS: PANTOPRAZOLE 40 MG TABLET.DR. PO SCH (16:45)
[2019-04-13] MEDS: FERROUS SULFATE 325 MG TABLET. PO SCH (16:46)
[2019-04-13 20:57] LABS: HEMATOCRIT 23.4 % (39.0-53.0)
[2019-04-13] MEDS: AMITRIPTYLINE HCL 25 MG TABLET. PO SCH (21:29)
[2019-04-13] MEDS: ATORVASTATIN CALCIUM 40 MG TABLET. PO SCH (21:29)
[2019-04-14] MEDS: PIPERACILLIN/TAZOBACTAM 3.375 GM in IV NORMAL SALINE 50ML 50 ML IV SCH ×2 (00:14→05:31)
[2019-04-14] MEDS: oxyCODONE/APAP 10/325 1 TAB TABLET PO PRN ×3 (00:15→22:17)
--- NOTE | 2019-04-14 02:49 | NUR ---
DIANA Nichole reported that pt was watching basketball out the window all night long. Pt also reported bugs crawling everywhere. When RN in room - pt alert and oriented - confused as to how gown keeps getting off while pt sleeping. Third side rail raised and bed alarm checked to make sure it was on. Call light taped to bedside table as pt frequently losing it and attemtps to crawl out of bed to find it. Pt made aware that it was taped to bedside tablet. Will continue to monitor pt status closely.
[2019-04-14 03:41] VITALS: BP 106/56
[2019-04-14] MEDS: IV NORMAL SALINE 1000ML BAG 1,000 ML IV SCH ×2 (04:55→16:47)
[2019-04-14] MEDS: tiZANidine 4 MG TABLET. PO SCH ×3 (05:32→22:15)
[2019-04-14 05:54] LABS: HEMATOCRIT 22.8 % (39.0-53.0); HEMOGLOBIN 7.8 g/dL (13.0-17.5); RED BLOOD COUNT 2.37 x10^6/uL (4.30-5.70); RED CELL DISTRIBUTION WIDTH 18.4 % (11.5-14.5); WHITE BLOOD COUNT 8.1 x10^3/uL (4.0-11.0)
[2019-04-14 06:03] LABS: CALCIUM 8.1 mg/dL (8.5-10.1); GFR 74.8; POTASSIUM 4.1 mmol/L (3.5-5.1)
[2019-04-14 07:20] VITALS: BP 104/57
--- NOTE | 2019-04-14 09:41 | PDOC ---
Infectious Disease Note Subjective Subjective pt is feeling good ROS ROS no n/v/d/ Vital Sign Vital Signs Vital Signs Date Time Temp Pulse Resp B/P (MAP) Pulse Ox O2 Delivery O2 Flow Rate FiO2 04/14/19 07:20 98.0 72 20 104/57 (73) 92 Nasal Cannula 2.0 98.0 Physical Exam PHYSICAL EXAM HEENT: Pupils equally round, reactive. Normal conjunctivae. Oral cavity: Pharynx is pink and moist. NECK: Supple. LUNGS: Clear to auscultation. HEART: S1, S2. Pacemaker. ABDOMEN: Obese, soft, nontender with bowel sounds present. GENITOURINARY: Indwelling Nichole in place. EXTREMITIES: 1+ edema in lower extremities bilaterally. No cyanosis. SKIN: Warm without generalized rash. NEUROLOGIC: Alert and oriented x 3. Chronic lower extremity weakness. Labs Lab Laboratory Tests Test 04/13/19 13:45 04/13/19 20:40 04/14/19 05:38 Hemoglobin 7.0 g/dL (13.0-17.5) 8.0 g/dL (13.0-17.5) 7.8 g/dL (13.0-17.5) Hematocrit 20.8 % (39.0-53.0) 23.4 % (39.0-53.0) 22.8 % (39.0-53.0) Mean Corpuscular Hemoglobin Concent 34 g/dL (31-37) 34 g/dL (31-37) White Blood Count 8.1 x10^3/uL (4.0-11.0) Red Blood Count 2.37 x10^6/uL (4.30-5.70) Mean Corpuscular Volume 96 fL (79-100) Mean Corpuscular Hemoglobin 33 pg (25-35) Red Cell Distribution Width 18.4 % (11.5-14.5) Platelet Count 122 x10^3/uL (140-400) Sodium Level 140 mmol/L (136-145) Potassium Level 4.1 mmol/L (3.5-5.1) Chloride Level 107 mmol/L (98-107) Carbon Dioxide Level 24 mmol/L (21-32) Anion Gap 9 (6-14) Blood Urea Nitrogen 18 mg/dL (8-26) Creatinine 1.0 mg/dL (0.7-1.3) Estimated GFR (Cockcroft-Gault) 74.8 Glucose Level 107 mg/dL (70-99) Calcium Level 8.1 mg/dL (8.5-10.1) Micro BC neg Urine, proteus Objective Assessment 1. Sepsis with hypotension, present on admission on 04/10. 2. Urinary tract infection present on admission ([facility]). 3. Leukocytosis. 4. Neurogenic bladder requiring self-catheterization, currently has an indwelling Nichole in place. 5. Partial paraplegia. 6. Elevated troponin. 7. Coronary artery disease, status post coronary stent placed on 03/31/2019. 8. Chronic diastolic heart failure. Plan Plan of Care change zosyn to omnicef d/c MARLI Romero MD April 14, 2019 09:41
[2019-04-14] MEDS: LACTOBACILLUS RHAMNOSUS GG 1 CAPSULE. PO SCH ×2 (09:48→22:15)
[2019-04-14] MEDS: SERTRALINE 50 MG TABLET. PO SCH (09:48)
[2019-04-14] MEDS: LIDOCAINE (700MG/PATCH) PATCH. TD SCH (09:48)
[2019-04-14] MEDS: FERROUS SULFATE 325 MG TABLET. PO SCH (09:48)
[2019-04-14] MEDS: ASPIRIN ENTERIC COATED 81 MG TABLET.DR. PO SCH (09:48)
[2019-04-14] MEDS: PANTOPRAZOLE 40 MG TABLET.DR. PO SCH ×2 (09:48→16:26)
[2019-04-14] MEDS: GABAPENTIN 400 MG CAPSULE. PO SCH ×3 (09:48→22:16)
[2019-04-14] MEDS: CYANOCOBALAMIN (VITAMIN B-12) 1,000 MCG TABLET. PO SCH (09:48)
--- NOTE | 2019-04-14 10:31 | PDOC ---
CARDIO Progress Notes Date and Time Date of Service 04/14/19 Time of Evaluation 1020 Subjective Subjective: No Chest Pain, No shortness of breath, No Palpitations Vitals Vitals Vital Signs Date Time Temp Pulse Resp B/P (MAP) Pulse Ox O2 Delivery O2 Flow Rate FiO2 04/14/19 07:20 98.0 72 20 104/57 (73) 92 Nasal Cannula 2.0 98.0 Weight Weight [ ] Input and Output Intake and Output Intake and Output0 04/14/19 07:00 Intake Total 3411 ml Output Total 1100 ml Balance 2311 ml Intake Oral 2000 ml IV Total 762 ml Blood Product IV Normal Saline Flush 649 ml Output Urine Total 1100 ml Laboratory Labs Laboratory Tests Test 04/13/19 13:45 04/13/19 20:40 04/14/19 05:38 Hemoglobin 7.0 g/dL (13.0-17.5) 8.0 g/dL (13.0-17.5) 7.8 g/dL (13.0-17.5) Hematocrit 20.8 % (39.0-53.0) 23.4 % (39.0-53.0) 22.8 % (39.0-53.0) Mean Corpuscular Hemoglobin Concent 34 g/dL (31-37) 34 g/dL (31-37) White Blood Count 8.1 x10^3/uL (4.0-11.0) Red Blood Count 2.37 x10^6/uL (4.30-5.70) Mean Corpuscular Volume 96 fL (79-100) Mean Corpuscular Hemoglobin 33 pg (25-35) Red Cell Distribution Width 18.4 % (11.5-14.5) Platelet Count 122 x10^3/uL (140-400) Sodium Level 140 mmol/L (136-145) Potassium Level 4.1 mmol/L (3.5-5.1) Chloride Level 107 mmol/L (98-107) Carbon Dioxide Level 24 mmol/L (21-32) Anion Gap 9 (6-14) Blood Urea Nitrogen 18 mg/dL (8-26) Creatinine 1.0 mg/dL (0.7-1.3) Estimated GFR (Cockcroft-Gault) 74.8 Glucose Level 107 mg/dL (70-99) Calcium Level 8.1 mg/dL (8.5-10.1) Physical Exam HEENT: Neck Supple W Full Motion Chest: Symmetric LUNGS: Other (diminished bases) Heart: S1S2, murmurs (2/6 systolic murmur ) Abdomen: Soft N/T Extremities: Other (trace bilateral LE edema ) Neurology: alert, oriented, follow commands Assessment Assessment 1. Sepsis/shock/UTI 2. CAD: S/P PCI 03/31/2019. 3. Elevated troponin: peak 0.36. CP free, most probably type II, demand ischemia induced by sepsis 4. Anemia; hgb drop to 7.0, s/p 1 unit PRBCs. EGD planned this afternoon 5. Neurogenic bladder requiring self-catheterization with partial paraplegia 6. Acute on chronic diastolic CHF: clinically compensated Recommendations No BB/ACEi as BP at low end Secondary prevention; continue to hold Brilinta for now given anemia. Continue ASA Follow GI recs Supportive care INDIRA HENLEY APRN April 14, 2019 10:31
--- NOTE | 2019-04-14 10:45 | PDOC ---
Subjective: Subjective: No bleeding, hasn't stooled, wants to go home. Ate some eggs and part of a piece of toast for breakfast and took pills. Objective: Objective: D/w Dr. Avalos and RN earlier this morning - made NPO for EGD. Reviewed chart - DC discussed. Vital Signs: Vital Signs Date Time Temp Pulse Resp B/P (MAP) Pulse Ox O2 Delivery O2 Flow Rate FiO2 04/14/19 07:20 98.0 72 20 104/57 (73) 92 Nasal Cannula 2.0 98.0 Labs: Laboratory Tests Test 04/13/19 13:45 04/13/19 20:40 04/14/19 05:38 Hemoglobin 7.0 g/dL 8.0 g/dL 7.8 g/dL Hematocrit 20.8 % 23.4 % 22.8 % Mean Corpuscular Hemoglobin Concent 34 g/dL 34 g/dL White Blood Count 8.1 x10^3/uL Red Blood Count 2.37 x10^6/uL Mean Corpuscular Volume 96 fL Mean Corpuscular Hemoglobin 33 pg Red Cell Distribution Width 18.4 % Platelet Count 122 x10^3/uL Sodium Level 140 mmol/L Potassium Level 4.1 mmol/L Chloride Level 107 mmol/L Carbon Dioxide Level 24 mmol/L Anion Gap 9 Blood Urea Nitrogen 18 mg/dL Creatinine 1.0 mg/dL Estimated GFR (Cockcroft-Gault) 74.8 Glucose Level 107 mg/dL Calcium Level 8.1 mg/dL PE: GEN: NAD - was asleep LUNGS: NC 2L HEART: RRR ABD: NABS, S/ND/NT NEURO/PSYCH: A & O 3 A/P: Sepsis/hypotension/UTI - improving Recent NSTEMI/stent placement - was on ASA and Brilinta prior to admission Anemia - iron and B12 deficient, now on replacement Heartburn - now on PPI -- He consent to EGD this afternoon. Further recs pending. MARI HARPER April 14, 2019 10:45
[2019-04-14 11:14] VITALS: BP 121/44
[2019-04-14] MEDS ORDERED: fentaNYL PF VIAL 100 MCG/2 ML VIAL IV PRN ×2 (11:30)
[2019-04-14] MEDS ORDERED: MIDAZOLAM HCL/PF 2 MG/2 ML VIAL. IV PRN (11:30)
[2019-04-14] MEDS ORDERED: LIDOCAINE 1% PF 2 ML VIAL. ID PRN (11:30)
[2019-04-14] MEDS: IV RINGERS,LACTATED 1000ML 1,000 ML IV SCH ×2 (14:19→19:25)
[2019-04-14] MEDS ORDERED: LIDOCAINE 2% PF 5 ML VIAL. ONE (14:33)
[2019-04-14] MEDS ORDERED: PROPOFOL 20 ML IV ONE (14:33)
--- NOTE | 2019-04-14 14:51 | PDOC4 ---
Operative Note Operative Note EGD with bx Meds propofol per anesthesia Pre-op dx melena/acute blood loss anemia Post-op dx gastric uclers s/p bx Plan PPI therapy for 2 months EGD in 2 months to confirm healing Advance diet and recheck Hg in am MANJINDER CRAWFORD MD April 14, 2019 14:51
--- NOTE | 2019-04-14 16:51 | NUR ---
SW following pt. PT/OT recommends home health. SW will arrange HH if ordered by Physician.
[2019-04-14 19:54] VITALS: BP 98/62
[2019-04-14] MEDS: AMITRIPTYLINE HCL 25 MG TABLET. PO SCH (22:15)
[2019-04-14] MEDS: ATORVASTATIN CALCIUM 40 MG TABLET. PO SCH (22:15)
[2019-04-14] MEDS: CEFDINIR 300 MG CAPSULE PO SCH (22:15)
[2019-04-14 23:57] VITALS: BP 107/56
[2019-04-15 03:20] VITALS: BP 110/56
[2019-04-15] MEDS: IV NORMAL SALINE 1000ML BAG 1,000 ML IV SCH ×2 (05:20→12:00)
--- NOTE | 2019-04-15 05:46 | PDOC ---
Infectious Disease Note Subjective Subjective pt is feeling good ROS ROS no n/v/d/ Vital Sign Vital Signs Vital Signs Date Time Temp Pulse Resp B/P (MAP) Pulse Ox O2 Delivery O2 Flow Rate FiO2 04/15/19 03:20 98.4 69 16 110/56 (74) 98 Nasal Cannula 2.0 98.4 Physical Exam PHYSICAL EXAM HEENT: Pupils equally round, reactive. Normal conjunctivae. Oral cavity: Pharynx is pink and moist. NECK: Supple. LUNGS: Clear to auscultation. HEART: S1, S2. Pacemaker. ABDOMEN: Obese, soft, nontender with bowel sounds present. GENITOURINARY: Indwelling Nichole in place. EXTREMITIES: 1+ edema in lower extremities bilaterally. No cyanosis. SKIN: Warm without generalized rash. NEUROLOGIC: Alert and oriented x 3. Chronic lower extremity weakness. Labs Micro BC neg Urine, proteus Objective Assessment 1. Sepsis with hypotension, present on admission on 04/10. 2. Urinary tract infection present on admission ([facility]). 3. Leukocytosis. 4. Neurogenic bladder requiring self-catheterization, currently has an indwelling Nichole in place. 5. Partial paraplegia. 6. Elevated troponin. 7. Coronary artery disease, status post coronary stent placed on 03/31/2019. 8. Chronic diastolic heart failure. Plan Plan of Care omnicef d/c MARLI Romero MD April 15, 2019 05:46
--- NOTE | 2019-04-15 05:53 | PN ---
DATE: 04/14/2019 SUBJECTIVE: The patient is resting slightly propped up in bed, in no apparent distress. On questioning him, he denied any complaint. In particular, denied any hematemesis, melena or hematochezia. Denied any abdominal pain. Nursing staff did not voice any concern and stated that he had an uneventful night. He was seen in consultation by the shot polisher. I held his meloxicam and Brilinta was also held after we consulted the missile facilities repairer. He did receive 1 unit of packed RBCs. PHYSICAL EXAMINATION: GENERAL: When I examined him this morning, he looked pale. No jaundice, cyanosis, or thyromegaly. No jugular venous distension. No limb edema. VITAL SIGNS: His heart rate was 73, blood pressure 121/44, temperature was 97.9, respiratory rate was 22 and oxygen saturation was 92% on 2 liters of oxygen. HEAD, EYES, EARS, NOSE AND THROAT: Showed normocephalic, atraumatic. NECK: Supple. HEART: Showed normal first and second heart sounds. No gallop, rub or murmur. CHEST: Clear to auscultation. No crepitation or rhonchi. ABDOMEN: Distended, soft, nontender. NEUROLOGIC: He is awake, alert, responding appropriately. All his cranial nerves are intact. He moves upper extremities to much good extent than lower extremities. He is mostly bedbound, chair bound. GENITOURINARY: He has an indwelling Nichole catheter. His intake was 1228, output was 1200. LABORATORY DATA: As of this morning, his white cell count was 8100, hemoglobin 7.8, hematocrit 22.8, MCV 96, and platelet count 222,000. Serum sodium 140, potassium 4.1, chloride 107, bicarbonate 24, anion gap of 9, BUN 18, creatinine 1, estimated GFR was 75 mL per minute. His glucose was 107, calcium was 8.9. He has severe vitamin B12 deficiency as his vitamin B12 was only 189 pg/mL. He apparently was started on vitamin B12 orally and he is scheduled for upper GI endoscopy. ASSESSMENT: 1. Sepsis with hypotension, present on admission. 2. Urinary tract infection, present on admission. 3. Leukocytosis, resolved. 4. Neurogenic bladder requiring self-catheterization. Currently, he has an indwelling Nichole catheter. 5. Functional paraplegia. 6. Elevated troponin. 7. Coronary artery disease, status post coronary stent deployment recently. 8. Chronic diastolic congestive heart failure. 9. Blood loss anemia with hemoglobin dropped down to 7 and hematocrit 19, likely to gastrointestinal bleed given that he is on meloxicam and Brilinta. PLAN: To continue with IV fluid for now. He is on Protonix twice a day. Await the outcome of upper GI endoscopy. CIRA GUADALUPE MD DR: CLAUDIA/ceci JOB#: [id number] / [id number]
[2019-04-15] MEDS: tiZANidine 4 MG TABLET. PO SCH ×2 (06:10→15:10)
[2019-04-15 06:48] LABS: HEMATOCRIT 22.8 % (39.0-53.0); HEMOGLOBIN 7.7 g/dL (13.0-17.5); RED BLOOD COUNT 2.35 x10^6/uL (4.30-5.70); RED CELL DISTRIBUTION WIDTH 17.8 % (11.5-14.5); WHITE BLOOD COUNT 5.9 x10^3/uL (4.0-11.0)
[2019-04-15 06:55] LABS: ALBUMIN 2.1 g/dL (3.4-5.0); ALBUMIN/GLOBULIN RATIO 0.6 (1.0-1.7); CALCIUM 8.1 mg/dL (8.5-10.1); CREATININE 0.9 mg/dL (0.7-1.3); GFR 84.4; POTASSIUM 4.1 mmol/L (3.5-5.1); TOTAL BILIRUBIN 0.4 mg/dL (0.2-1.0); TOTAL PROTEIN 5.7 g/dL (6.4-8.2)
[2019-04-15 07:00] VITALS: BP 90/47
[2019-04-15] MEDS ORDERED: FERR325T14 PO (10:01)
[2019-04-15] MEDS ORDERED: ASCO500T3 PO (10:01)
[2019-04-15] MEDS ORDERED: PANT20TA2 PO (10:01)
[2019-04-15] MEDS ORDERED: CEFD300C PO (10:02)
--- NOTE | 2019-04-15 10:07 | PDOC ---
Subjective: Subjective: Wants to go home. Tolerating PO. Objective: Vital Signs: Vital Signs Date Time Temp Pulse Resp B/P (MAP) Pulse Ox O2 Delivery O2 Flow Rate FiO2 04/15/19 07:00 98.5 64 18 90/47 (61) 98 Nasal Cannula 2.0 98.5 Labs: Laboratory Tests Test 04/15/19 06:25 White Blood Count 5.9 x10^3/uL Red Blood Count 2.35 x10^6/uL Hemoglobin 7.7 g/dL Hematocrit 22.8 % Mean Corpuscular Volume 97 fL Mean Corpuscular Hemoglobin 33 pg Mean Corpuscular Hemoglobin Concent 34 g/dL Red Cell Distribution Width 17.8 % Platelet Count 149 x10^3/uL Sodium Level 141 mmol/L Potassium Level 4.1 mmol/L Chloride Level 108 mmol/L Carbon Dioxide Level 25 mmol/L Anion Gap 8 Blood Urea Nitrogen 12 mg/dL Creatinine 0.9 mg/dL Estimated GFR (Cockcroft-Gault) 84.4 BUN/Creatinine Ratio 13 Glucose Level 104 mg/dL Calcium Level 8.1 mg/dL Total Bilirubin 0.4 mg/dL Aspartate Amino Transf (AST/SGOT) 13 U/L Alanine Aminotransferase (ALT/SGPT) 16 U/L Alkaline Phosphatase 61 U/L Total Protein 5.7 g/dL Albumin 2.1 g/dL Albumin/Globulin Ratio 0.6 Imaging: EGD 04/14 gastric uclers s/p bx PE: GEN: NAD - pale today LUNGS: CTAB HEART: RRR ABD: S/ND/NT NEURO/PSYCH: A & O 3 A/P: Sepsis/UTI Recent NSTEMI/stent placement Anemia Gastric ulcers - path pending -- DC per primary on PPI, iron, and B12. Follow-up in 2-3 months for EGD to confirm healing. Miralax PRN. MARI HARPER April 15, 2019 10:07
[2019-04-15] MEDS ORDERED: POLYETHYLENE GLYCOL 3350 17 GM PACKET. PO PRN (10:15)
--- NOTE | 2019-04-15 10:31 | SNU/HH DC ---
DISCHARGE WITH HOME HEALTH DISCHARGE INFORMATION: Discharge Date: April 15, 2019 Final Diagnosis: sepsis 2/2 urinary tract infection acute blood loss anemia NSAID Induced gastric ulcer NSTEMI Condition on Discharge: Stable CODE STATUS: Code Status: Full HOME HEALTH: Face to Face: I certify this patient is under my care and that I, or a nurse practitioner or physician's business banking sales assistant working with me, had a face to face encounter that meets the physician face to face encounter requirements with this patient on 04/15/2019 Medical Complications: Other Fpc For: Assess & Educate Safety RN For Eval/Treatment: Yes Physical Therapy For: Evalulation/Treatment Occupational Therapy For: Evaluation/Treatment Pt Meets Homebound Status: Unsteady balance w/ amb,, Extreme weakness w/ amb., Limited distance walking POST DISCHARGE ORDERS: Activity Instructions for Disc: Resume previous activity, Other, see below Weight Bearing Status after Di: As tolerated Bathing Instructions: Shower-keep dressing dry, No Tub Bath until see DIET AFTER DISCHARGE: Regular CHECKS AFTER DISCHARGE: Checks after discharge: Check blood press - daily, Check your Temp as needed, Weigh Yourself Daily Comment: Check cbc twice a week FOLLOW-UP: PCP to follow Home Health: Dr Eugene Zarco as the patient has NSAID induced gastric ulcer with acute blood loss anemia Follow up with: Cardiology Dr Johnson TREATMENT/EQUIPMENT ORDERS: Adaptive Equipment Issued: Wheelchair Discharge Respiratory Equipmen: Oxygen CERTIFICATION STATEMENT: Certification Statement: Certification Statement: Based on the above finding, I certify that this patient is confined to the home and needs intermittent custodial care, physical therapy and/or speech therapy, or continues to need occupational therapy.~ This patient is under my care, and I have initiated the establishment of the plan of care.~ This patient will be followed by myself or a community physician who will periodically review the plan of care. Home Meds Active Scripts Ticagrelor (BRILINTA) 90 Mg Tablet, 90 MG PO BID for CAD for 30 Days, #60 TAB Prov:CIRA GUADALUPE MD 04/01/19 Reported Medications Lidocaine (Lidocaine) 1 Each Adh..patch, 1 PATCH TP DAILY for pain, PATCH 04/10/19 Sertraline Hcl (ZOLOFT) 100 Mg Tablet, 100 MG PO DAILY for ANTI-DEPRESSANT, TAB 0 Refills 04/10/19 Tizanidine Hcl (TIZANIDINE HCL) 4 Mg Tablet, 4 MG PO Q8HRS for muscle pain, TAB 04/10/19 Gabapentin (GABAPENTIN) 800 Mg Tablet, 800 MG PO TID for NEUROGENIC PAIN, TAB 04/10/19 Oxycodone/Apap 10-325 (PERCOCET 10-325 MG TABLET ) 1 Each Tablet, 1-2 TAB PO PRN Q8HRS PRN for PAIN, TAB 0 Refills 04/10/19 Amitriptyline Hcl (AMITRIPTYLINE HCL) 25 Mg Tablet, 25 MG PO QHS for nerve pain, TAB 04/10/19 Aspirin (ASPIRIN EC) 81 Mg Tablet.dr, 1 TAB PO DAILY for BLOOD THINNER, #30 TAB 3 Refills 04/01/19 Atorvastatin Calcium (ATORVASTATIN CALCIUM) 40 Mg Tablet, 40 MG PO HS for FOR CHOLESTEROL, #30 TAB 0 Refills 04/01/19 Meloxicam (MELOXICAM) 15 Mg Tablet, 1 TAB PO DAILY, #30 TAB 2 Refills 05/23/15 Discontinued Reported Medications Ibuprofen (IBUPROFEN) 400 Mg Tablet, 2 TAB PO PRN Q6HRS, #20 TAB 05/23/15 CIRA GUADALUPE MD April 15, 2019 10:31
[2019-04-15 11:00] VITALS: BP 114/51
[2019-04-15] MEDS ORDERED: ASCORBIC ACID 500 MG TABLET PO SCH (11:00)
[2019-04-15] MEDS ORDERED: FERROUS SULFATE 325 MG TABLET. PO SCH (11:00)
[2019-04-15] MEDS ORDERED: POLYETHYLENE GLYCOL 3350 17 GM PACKET. PO SCH (11:00)
--- NOTE | 2019-04-15 11:05 | NUR ---
KARMA following. Discussed with RN, pt discharging home today. KARMA met with pt, pt is agreeable to home [facility] and would like [facility] as that is who he had in the passed. KARMA faxed referral to [facility]. Sylvie buyer planner will be contacting [place] to confirm.
[2019-04-15] MEDS: PANTOPRAZOLE 40 MG TABLET.DR. PO SCH (11:09)
[2019-04-15] MEDS: CYANOCOBALAMIN (VITAMIN B-12) 1,000 MCG TABLET. PO SCH (11:09)
[2019-04-15] MEDS: ASPIRIN ENTERIC COATED 81 MG TABLET.DR. PO SCH (11:09)
[2019-04-15] MEDS: LACTOBACILLUS RHAMNOSUS GG 1 CAPSULE. PO SCH (11:09)
[2019-04-15] MEDS: FERROUS SULFATE 325 MG TABLET. PO SCH (11:09)
[2019-04-15] MEDS: CEFDINIR 300 MG CAPSULE PO SCH (11:09)
[2019-04-15] MEDS: GABAPENTIN 400 MG CAPSULE. PO SCH ×2 (11:10→15:10)
[2019-04-15] MEDS: LIDOCAINE (700MG/PATCH) PATCH. TD SCH (11:10)
[2019-04-15] MEDS: oxyCODONE/APAP 10/325 1 TAB TABLET PO PRN (11:10)
[2019-04-15] MEDS: SERTRALINE 50 MG TABLET. PO SCH (11:10)
[2019-04-15] MEDS ORDERED: IRON SUCROSE COMPLEX 500 MG in IV NORMAL SALINE 250ML 250 ML IV ONE (11:30)
--- NOTE | 2019-04-15 12:34 | DS ---
DATE OF DISCHARGE: 04/15/2019 HOSPITAL COURSE: The patient is a 68-year-old male patient who was seen originally at [facility] Emergency Room with hypotension. At that time, his white cell count was high at 16,000 and he was also found to have slightly elevated troponin, although he only has had his cardiac catheterization and stent deployment recently. He was diagnosed with sepsis due to urinary tract infection, treated with IV fluid, IV antibiotic. While in the ICU, he also dropped his H and H and his stool was positive for Hemoccult. We stopped the meloxicam and held the Brilinta. He underwent upper GI endoscopy and was found to have gastric ulcer and I obviously have discontinued his meloxicam. I spoke with Dr. Dias about Brilinta and he said that it should not be stopped, so we will continue that. He was started on proton pump inhibitor in the form of Protonix 40 mg twice a day and we will treat him with Venofer IV 500 mg once today. He will be discharged home on ferrous sulfate as well as ascorbic acid. To complete the treatment of urinary tract infection, he was switched to Cefdinir 300 mg twice a day for 7 days. PHYSICAL EXAMINATION: GENERAL: When I saw him today, he looked well and was clearly in no apparent respiratory distress. No pallor, jaundice, cyanosis, or thyromegaly. No jugular venous distension. No limb edema. VITAL SIGNS: His heart rate was 64, blood pressure was 90/47, temperature was 98.5, respiratory rate was 18 and his oxygen saturation was 98% on 2 liters of oxygen. HEAD, EYES, EARS, NOSE AND THROAT: Normocephalic, atraumatic. NECK: Supple. HEART: Showed normal first and second heart sounds with no gallop, rub or murmur. CHEST: Clear to auscultation. No crepitation or rhonchi. ABDOMEN: Distended, soft, nontender. NEUROLOGIC: He is awake, alert, responding appropriately. All his cranial nerves are intact. He moves upper extremities without difficulty. He has functional paraplegia with neurogenic bladder requiring self-catheterization. His intake over the last 24 hours was 3400, output was 1175. LABORATORY DATA: As of this morning, his white cell count was 5900, hemoglobin 7.7, hematocrit 22.8, MCV 97 and platelet count of 149,000. His chemistry showed a serum sodium 141, potassium 4.1, chloride 108, bicarbonate 25, anion gap of 8, BUN 12, creatinine 0.9, estimated GFR was 84 mL per minute, his glucose 104, calcium was 8.1. Total bilirubin, AST, ALT, alkaline phosphatase were normal. Total protein was 5.7, albumin was 2.1. His nasal screen for MRSA by PCR was negative. DISCHARGE MEDICATIONS: He was discharged home with home health to continue on ascorbic acid 500 mg twice a day, cefdinir 300 mg twice a day for 7 days, ferrous sulfate 325 mg twice a day with meals and Protonix 40 mg twice a day. He should also be discharged on amitriptyline 25 mg at bedtime, aspirin 81 mg once a day, atorvastatin calcium 40 mg at bedtime, gabapentin 800 mg 3 times a day, Lidoderm patch topically daily, oxycodone/APAP 10/325 one to two tablets every 8 hours, sertraline for Zoloft 100 mg daily, Brilinta 90 mg twice a day and tizanidine 4 mg every 8 hours as needed. We discontinued his meloxicam. FINAL DISCHARGE DIAGNOSES: 1. Sepsis with hypotension, present on admission. 2. Urinary tract infection, present on admission. 3. Leukocytosis, resolved. 4. Neurogenic bladder requiring self catheterization. 5. Functional quadriplegia. 6. Elevated troponin. 7. Coronary artery disease, status post coronary artery bypass and coronary artery stent deployment recently. 8. Chronic diastolic congestive heart failure. 9. Acute blood loss anemia due to nonsteroidal woqi-fenzfqhselyh-wzivacx gastric ulcer. I have discontinued his meloxicam. He will receive 500 mg of IV Venofer here and will be discharged on ferrous sulfate and ascorbic acid twice a day with meals. DISCHARGE INSTRUCTIONS: The home health agency should monitor his H and H at least twice a week and send the result to Dr. Eugene Zarco, his primary care physician. Obviously if he is bleeding, he needs to come to the nearest emergency room. CIRA GUADALUPE MD DR: CLAUDIA/ceci JOB#: [id number] / [id number]
--- NOTE | 2019-04-15 15:05 | PATHOLOGY ---
[facility] Accession Number: [id number] . 01 Material submitted: . stomach - GASTRIC ULCER BIOPSY . 01 Clinical history: . Pre-OP DX: Anemia Post-OP DX: Gastric ulcer . 02 Diagnosis: Gastric biopsies, gastric ulcer: - Focal mild acute and chronic inflammation. . (JPM:mml; 04/15/2019) [facility]/04/15/2019 . 02 Comment: Sections of the gastric ulcer biopsy reveal segments of gastric antral mucosa showing focal mild acute and chronic inflammation. A properly-controlled immunoperoxidase stain for Helicobacter is negative for Helicobacter organisms. There is no evidence of malignancy. . Special stain: Immunoperoxidase stain for Helicobacter . (JPM:mml; 04/15/2019) . 02 Electronically signed: . Pankaj Yeboah MD, Pathologist NPI- [id number] . 01 Gross description: . Received in formalin labeled "Giulia, Michael, gastric ulcer BX," are 3 segments of wall soft tissue measuring 0.9 x 0.5 x 0.2 cm in aggregate dimensions and ranging from 0.2 to 0.4 cm in maximum dimension. The specimen is submitted entirely in cassette A1. (TSD; 04/14/2019) TOB/TOB . 02 Pathologist provided ICD-10: K29.00, K29.50 . 02 CPT . 582513, Y16226 Specimen Comment: A courtesy copy of this report has been sent to Specimen Comment: [phone]. Specimen Comment: Report sent to Performed at: 01 [facility] [address], [place], [place] [id number] MD Nathan Rubio MD Phone: [phone] Performed at: 02 [facility] [address] [place], [place] [id number] MD Pankaj Yeboah MD Phone: [phone]
--- NOTE | 2019-04-15 16:23 | NUR ---
KARMA following. Pt requiring oxygen. KARMA sent referral to [facility]. WILHELM to fax testing and Dr. Richard will fax the script from [place]. MELONIE and Dr. Richard aware of what needs to be sent and written on the script. Gomez tank left with pt's RN for discharge.
--- NOTE | 2019-04-15 17:14 | NUR ---
Patient discharged to home with home health. Discharge instructions, medications, and follow up appointments discussed with patient and . Both verbalized understanding. Discharge papers and prescriptions given to patient. PICC and jones cath discontinued. Oxygen tank sent with patient. Patient has all belongings. Assisted out in own wheelchair by staff.
== END 2019-04-15 17:00 | disposition home health service (06) | DRG 871 ==
LOC: 1 WEST ICU 13:40 → 6 SOUTH 04-13 16:09
PROVIDERS: ADMIT Internal Medicine; ATTEND Internal Medicine
PROC: 30233N1 Transfusion of Nonautologous Red Blood Cells into Peripheral Vein, Percutaneous Approach (ICD-10-PCS; principal; 2019-04-10)
PROC: 0DB68ZX Excision of Stomach, Via Natural or Artificial Opening Endoscopic, Diagnostic (ICD-10-PCS; 2019-04-14)
PROC: 02HV33Z Insertion of Infusion Device into Superior Vena Cava, Percutaneous Approach (ICD-10-PCS; 2019-04-14)
PROC: B548ZZA Ultrasonography of Superior Vena Cava, Guidance (ICD-10-PCS; 2019-04-14)
DX: A41.9 Sepsis, unspecified organism (principal); I50.33 Acute on chronic diastolic (congestive) heart failure; K25.4 Chronic or unspecified gastric ulcer with hemorrhage; R53.2 Functional quadriplegia; R65.21 Severe sepsis with septic shock; D62 Acute posthemorrhagic anemia; N39.0 Urinary tract infection, site not specified; E78.5 Hyperlipidemia, unspecified; F17.210 Nicotine dependence, cigarettes, uncomplicated; F32.9 Major depressive disorder, single episode, unspecified; F41.9 Anxiety disorder, unspecified; G89.4 Chronic pain syndrome; I11.0 Hypertensive heart disease with heart failure; I25.10 Atherosclerotic heart disease of native coronary artery without angina pectoris; I25.2 Old myocardial infarction; K21.9 Gastro-esophageal reflux disease without esophagitis; N31.9 Neuromuscular dysfunction of bladder, unspecified; N40.1 Benign prostatic hyperplasia with lower urinary tract symptoms; T39.395A Adverse effect of other nonsteroidal anti-inflammatory drugs [NSAID], initial encounter; Z86.010 Personal history of colon polyps; Z87.440 Personal history of urinary (tract) infections; Z95.0 Presence of cardiac pacemaker; Z95.1 Presence of aortocoronary bypass graft; Z95.5 Presence of coronary angioplasty implant and graft; Z98.1 Arthrodesis status; Z99.3 Dependence on wheelchair; Z79.891 Long term (current) use of opiate analgesic; M19.90 Unspecified osteoarthritis, unspecified site
CPT/HCPCS: 36415; 36569; 43239; 71045; 80048; 80053; 82607; 83540; 83550; 83605; 84145; 84484; 85007; 85014; 85018; 85025; 85027; 86850; 86900; 86901; 86920; 87641; 88305; 88342; 93005; 94618; J1756; J2001; J2543; J2704; J3370; J7030; J7040; J7050; J7120; P9016

== ENCOUNTER 2019-11-14 16:15 | Emergency (ER) | payer MEDICARE ==
[~2019-11-14] VITALS: Ht 172.7 cm; Wt 104.3 kg
[~2019-11-14 16:15] MED LIST changes: +AMIT25TA PO; +ASCO500T3 PO; +CEFD300C PO; +FERR325T14 PO; +GABA800T5 PO; +LIDO700A21 TP; +OXYC1TAB22 PO; +PANT20TA2 PO; +SERT100T PO; +TIZA4TAB2 PO
--- NOTE | 2019-11-14 17:01 | PHYS DOC ---
Past Medical History Past Medical History: Arthritis, CAD, CHF, GERD, Hypertension Additional Past Medical Histor: BACK PAIN Past Surgical History: Pacemaker Additional Past Surgical Histo: CARDIAC STENTS, SPINALS STIMULATOR Alcohol Use: Occasionally Drug Use: None Adult General Chief Complaint Chief Complaint: LOWER BACK PAIN OR INJURY [facility] HPI Patient is a 69 year old male who presents with right-sided lower back pain is radiating down both legs has been ongoing since earlier today. The patient fell on Thursday and states he has fallen twice her last several days. The patient is in a wheelchair at home and states he normally can walk a couple feet. The patient had a spinal injury in 2002 when he had a compression injury to his spine due to infection. The patient states that he straight catheters himself and that he has reduced sensation below his waist. He states he is in severe 10 out of 10 pain. The patient arrived by EMS who gave him 200 mg of fentanyl prior to arrival. Review of Systems Review of Systems Constitutional: Denies fever or chills [] Eyes: Denies change in visual acuity, redness, or eye pain [] HENT: Denies nasal congestion or sore throat [] Respiratory: Denies cough or shortness of breath [] Cardiovascular: No additional information not addressed in HPI [] GI: Denies abdominal pain, nausea, vomiting, bloody stools or diarrhea [] : Denies dysuria or hematuria [] Musculoskeletal: Reports back pain radiating down both legs. Integument: Denies rash or skin lesions [] Neurologic: Denies headache, focal weakness or sensory changes [] Endocrine: Denies polyuria or polydipsia [] Complete systems were reviewed and found to be within normal limits, except as documented in this note. Current Medications Current Medications Current Medications Medications (Trade) Dose Ordered Sig/[facility] Start Time Stop Time Status Last Admin Dose Admin Ketamine HCl (Ketamine) 31 mg 1X ONCE 11/14/19 17:15 11/14/19 17:16 DC 11/14/19 17:40 31 MG Allergies Allergies Allergies Coded Allergies Type Severity Reaction Last Updated Verified adhesive Allergy Intermediate Rash 05/23/15 Yes Physical Exam Physical Exam Constitutional: Well developed, well nourished, no acute distress, non-toxic appearance. [] HENT: Normocephalic, atraumatic, bilateral external ears normal, oropharynx moist, no oral exudates, nose normal. [] Eyes: PERRLA, EOMI, conjunctiva normal, no discharge. [] Neck: Normal range of motion, no tenderness, supple, no stridor. [] Cardiovascular:Heart rate regular rhythm, no murmur [] Lungs & Thorax: Bilateral breath sounds clear to auscultation [] Skin: Warm, dry, no erythema, no rash. [] Back: R sided tenderness to lower back, Lumbar spinal tenderness to palpation. Neurologic: Alert and oriented X 3, reduced sensory function below the waist (per patient this is baseline)[] Psychologic: Affect normal, judgement normal, mood normal. [] Current Patient Data Vital Signs Vital Signs Date Time Temp Pulse Resp B/P (MAP) Pulse Ox O2 Delivery O2 Flow Rate FiO2 11/14/19 16:15 98.5 90 12 135/77 (96) 96 Nasal Cannula 2.0 98.5 Lab Values Laboratory Tests Test 11/14/19 18:23 Urine Collection Type Unknown Urine Color Yellow Urine Clarity Clear Urine pH 6.0 Urine Specific Dora 1.025 Urine Protein Negative mg/dL (NEG-TRACE) Urine Glucose (UA) Negative mg/dL (NEG) Urine Ketones (Stick) 15 mg/dL (NEG) Urine Blood Small (NEG) Urine Nitrite Positive (NEG) Urine Bilirubin Negative (NEG) Urine Urobilinogen Dipstick 0.2 mg/dL (0.2 mg/dL) Urine Leukocyte Esterase Moderate (NEG) Urine RBC 1-2 /HPF (0-2) Urine WBC 20-40 /HPF (0-4) Urine Squamous Epithelial Cells Few /LPF Urine Bacteria Many /HPF (0-FEW) Urine Hyaline Casts Few /HPF Urine Mucus Mod /LPF EKG EKG [] Radiology/Procedures Radiology/Procedures [][facility] [address] [place] [address] IMAGING REPORT Signed PATIENT: GURWINDER LUNSFORD ACCOUNT: [id number] : 1950 LOCATION: ER AGE: 69 SEX: M EXAM STATUS: REG ER ORD. PHYSICIAN: NASH FLOOD APRN REASON: fall, back pain x several weeks PROCEDURE: CT LUMBAR SPINE WO CONTRAST CT lumbar spine without contrast History: Back pain after fall several weeks ago Axial helical images of the lumbar spine were obtained without contrast. Axial, coronal and sagittal reconstruction was performed. Findings: The vertebral bodies are aligned. There is no loss of vertebral body stature. Evaluation of the central canal is limited without contrast. There is significant loss of intervertebral disc material at T11-T12 and L3-L4. There are diffuse circumferential disc bulges and hypertrophy of facets and ligamentum flavum resulting in mild central stenosis at multiple levels and moderate central stenosis at L3-L4. There is mild narrowing of multiple neuroforamen below the level of the exiting nerve roots bilaterally. The visualized osseous structures appear grossly intact. Impression: Chronic degenerative changes. No acute findings. PQRS Compliance Statement: One or more of the following individualized dose reduction techniques were utilized for this examination: 1. Automated exposure control 2. Adjustment of the mA and/or kV according to patient size 3. Use of iterative reconstruction technique Electronically signed by: Guillermina Ga III, MD (11/14/2019 5:47 PM) [facility] DICTATED and SIGNED BY: GUILLERMINA GA III, MD DATE: 11/14/191746 Course & Med Decision Making Course & Med Decision Making Pertinent Labs and Imaging studies reviewed. (See chart for details) Will get CT scan, UA, and will give sub-dissociate dose Ketamine (0.3 mg/kg). As he has already received 200 mcg of Fentanyl. Will instruct nursing to give over 15 minutes. Urine shows positive nitrates and leukocytes. Will place on Keflex. Imaging was unremarkable. Will also give 3 days of oxycodone. Dragon Disclaimer Dragon Disclaimer This electronic medical record was generated, in whole or in part, using a voice recognition dictation system. Departure Departure Impression: Primary Impression: Sciatica Additional Impression: Urinary tract infection Disposition: HOME, SELF-CARE Condition: STABLE Referrals: SAGE PEÑA MD (PCP) Patient Instructions: Sciatica, Urinary Tract Infection Additional Instructions: Thank you for visiting [facility]. We appreciate you trusting us with your care. If any additional problems come up don't hesitate to return to visit us. Please follow up with your primary care provider so they can plan additional care if needed and know about the problem that you had. If symptoms worsen come back to the Emergency Department. Any concerning symptoms that start such as chest pain, shortness of air, weakness or numbness on one side of the body, running high fevers or any other concerning symptoms return to the ER. You have been prescribed an antibiotic today to help fight your infection. Please take all of the antibiotic as directed. If after 48 hours the infection is not improving, please return for more care. If the infection worsens, return to ER for additional care. Scripts Oxycodone/Apap 10-325 (PERCOCET 10-325 MG TABLET ) 1 Each Tablet 1 TAB PO PRN Q6HRS PRN for PAIN for 3 Days, #12 TAB 0 Refills Prov: NASH FLOOD APRN 11/14/19 Cephalexin (KEFLEX) 500 Mg Capsule 1 CAP PO QID for 7 Days, #28 CAP 0 Refills Prov: NASH FLOOD APRN 11/14/19 Problem Qualifiers Primary Impression: Sciatica Laterality: bilateral Qualified Codes: M54.31 - Sciatica, right side; M54.32 - Sciatica, left side Additional Impression: Urinary tract infection Urinary tract infection type: acute cystitis Hematuria presence: with hematuria Qualified Codes: N30.01 - Acute cystitis with hematuria NASH FLOOD APRN Nov 14, 2019 17:01
[2019-11-14] MEDS ORDERED: KETAMINE HCL IN NACL, ISO-OSM 50 MG/5 ML SYRINGE IV ONE (17:15)
--- NOTE | 2019-11-14 17:49 | RAD ---
CT lumbar spine without contrast History: Back pain after fall several weeks ago Axial helical images of the lumbar spine were obtained without contrast. Axial, coronal and sagittal reconstruction was performed. Findings: The vertebral bodies are aligned. There is no loss of vertebral body stature. Evaluation of the central canal is limited without contrast. There is significant loss of intervertebral disc material at T11-T12 and L3-L4. There are diffuse circumferential disc bulges and hypertrophy of facets and ligamentum flavum resulting in mild central stenosis at multiple levels and moderate central stenosis at L3-L4. There is mild narrowing of multiple neuroforamen below the level of the exiting nerve roots bilaterally. The visualized osseous structures appear grossly intact. Impression: Chronic degenerative changes. No acute findings. PQRS Compliance Statement: One or more of the following individualized dose reduction techniques were utilized for this examination: 1. Automated exposure control 2. Adjustment of the mA and/or kV according to patient size 3. Use of iterative reconstruction technique Electronically signed by: Jose E Hdz III, MD (11/14/2019 5:47 PM) [facility]
[2019-11-14 18:35] LABS: BILIRUBIN,URINE NEGATIVE (NEG); CLARITY,URINE CLEAR; COLOR,URINE YELLOW; NITRITE,URINE POSITIVE (NEG); PROTEIN,URINE NEGATIVE (NEG-TRACE); UROBILINOGEN,URINE 0.2 mg/dL (0.2 mg/dL)
[2019-11-14 18:44] VITALS: BP 116/66
[2019-11-14 18:50] LABS: HYALINE CASTS, URINE FEW /HPF; SQUAMOUS EPITHELIAL CELL,UR FEW /LPF
[2019-11-14 18:51] LABS: BACTERIA,URINE MANY /HPF (0-FEW); WBC,URINE 20-40 /HPF (0-4)
[2019-11-14] MEDS ORDERED: CEPH-264 PO (18:55)
[2019-11-14] MEDS ORDERED: OXYC1TAB22 PO (19:01)
== END 2019-11-14 19:09 | disposition home or self-care (01) ==
LOC: ER 16:15
DX: M54.42 Lumbago with sciatica, left side (principal); N30.01 Acute cystitis with hematuria; M19.90 Unspecified osteoarthritis, unspecified site; I25.10 Atherosclerotic heart disease of native coronary artery without angina pectoris; I50.9 Heart failure, unspecified; K21.9 Gastro-esophageal reflux disease without esophagitis; I11.0 Hypertensive heart disease with heart failure; Z95.0 Presence of cardiac pacemaker; Z88.8 Allergy status to other drugs, medicaments and biological substances
CPT/HCPCS: 72131; 81001; 87086; 87186; 96374; 99285-25